=== PATIENT | male | born 1945 | race Two or more races ===

== ENCOUNTER 2025-01-30 01:59 | Inpatient (IN) | payer MEDICARE, SELFPAY ==
[2025-01-30] VITALS (14 sets, daily range): BP systolic 115–135; BP diastolic 65–87; PULSE 69–114; RESP 16–24; TEMP 36.2–36.7; O2SAT 84–100; BMI 23.2
--- NOTE | 2025-01-30 03:17 | EKG_ITS ---
[facility] Test Date: 2025-01-30 Pat Name: LUPE BAHENA Department: Room: - Gender: Male Senior [employer]: : 1945 Requested By: ED Temporary Provider Order Number: [id number] Reading MD: ED Temporary Provider Measurements Intervals [place] Rate: 90 P: 81 OR: 169 QRS: 223 QRSD: 184 T: 14 QT: 394 QTc: 483 Interpretive Statements ELECTRONIC VENTRICULAR PACEMAKER ABNORMAL RHYTHM ECG No previous ECG available for comparison /[id number]/[email or web address]/[id number].pdf
--- NOTE | 2025-01-30 03:18 | XR_ITS ---
Examination 1 AP chest single view TECHNIQUE: AP portable upright chest single view Date and time: January 30 2025 0342 hours INDICATIONS: Shortness of breath chest pain today. FINDINGS: Mild CHF Mild enlargement left ventricle. Prominent vascular congestion. Perihilar basilar edema. Cardiac leads satisfactory position Prominent osteopenia IMPRESSION: Mild CHF
--- NOTE | 2025-01-30 03:31 | EDNOTE_ITS ---
ED SOB =RME/HPI General Chief Complaint: Shortness of Breath/Dyspnea Stated Complaint: SOB Time Seen by Provider: 01/30/25 03:45 Arrival date/time: 01/30/25 01:59 RME / HPI RME / HPI Narrative: Dr. Jackson?s Main ED Evaluation: 79yo male with history ?COPD presenting with progressively worsening dyspnea x ~2 hours. Associated productive cough with clear phlegm and diaphoresis. Found to be in moderate respiratory distress by EMS and was saturating in 80s. Serial breathing treatments were given en route with overall marked improvement. Patient denies chest pain, lightheadedness, or dizziness. PMHX includes copd/chf. PSH thoraco-abdominal aortic aneurysm graft repair. Related Data Allergies Allergy/AdvReac Type Severity Reaction Status Date / Time No Known Allergies Allergy Verified 01/30/25 02:28 Review of Systems Review of Systems Systems Reviewed: All systems reviewed, normal except as documented Past Medical History Past Medical History NEUROLOGIC: Negative Neurological Disorders CARDIAC: Positive Myocardial Infarction, Aneurysm and Hypertension; Negative Congestive Heart Failure RESPIRATORY: Positive Asthma; Negative Chronic Obstructive Pulmonary Disease (COPD) GASTROINTESTINAL: Negative Gastrointestinal Disorders, Hepatitis or Colorectal Cancer GENITOURINARY: Negative Genitourinary Disorders, Renal Disease or Prostate Cancer REPRODUCTIVE: Negative Breast Cancer or Testicular Cancer MUSCULOSKELETAL: Negative Musculoskeletal Disorders or Bone Cancer ENT: Negative History of ENT Problems or Cataracts ENDOCRINE: Negative Endocrine Disorders, Diabetes Mellitus Type 1 or Diabetes Mellitus Type 2 HEMATOLOGIC: Negative Blood Disorders, Anemia, Leukemia, Hemophilia, Thalassemia, Sickle Cell Disease or Clotting Problems OTHER HISTORY: Negative Hospitalization, Autoimmune Disease, Down Syndrome, D evelopmental Delay, Shingles, Falls, Blood Transfusions, Blood Transfusion Reaction, Anesthesia Reactions, Organ Transplant, Chemotherapy, Radiation Therapy, Hyperbaric Therapy, MRSA, VRSA, Vancomycin-Resistant Enterococci, Human Immunodeficiency Virus (HIV), Chicken Pox, Measles, Mumps, Rubella ([place] Measles), Pertussis, Clostridium Difficile, Cancer, Breast Cancer, Colorectal Cancer, Lung Cancer, Prostate Cancer or Testicular Cancer Surgical History SURGICAL: Positive Cardiac Surgery, Coronary Artery Bypass Graft and Pacemaker; Negative Endocrine Surgery, Thyroidectomy, Ear Surgery, Tympanostomy Tube, Eye Surgery, Nose Surgery, Oral Surgery, Tonsillectomy, Adenoidectomy, Cochlear Implant, Corneal Transplant, Throat Surgery, Abdominal Surgery, Tracheostomy, Penile Implant, Nephrectomy, Ureteral Stent, Transurethral Resection, Neurologic Surgery, Brain Shunt, Vasectomy, Organ Transplant or ESWL Social History SMOKING STATUS: Current some day smoker ED Exam Narrative Physical exam: GENERAL APPEARANCE: alert and oriented x 4, mild conversational dyspnea, no acute distress HEENT: Normocephalic, atraumatic; pupils equal, round, reactive to light; EOMI; mucous membranes pink, moist; oropharynx clear NECK: Supple, no JVD LUNGS: Diminished breath sounds bilaterally, basilar rales bilaterally HEART: Regular rate, regular rhythm; normal S1, S2; no murmurs ABDOMEN: non distended; normal BS; soft, no tenderness, no guarding, no rebound; no masses, no organomegaly, no hernia BACK: no CVA tenderness EXTREMITIES: atraumatic; no edema NEUROLOGIC: awake; alert and oriented x4; cranial nerves II-XII grossly intact; no focal sensory or motor deficits PSYCHIATRIC: appropriate mood and affect SKIN: warm, dry, normal color; no rashes Course Course Course Narrative: CXR is ordered for determining the etiology of shortness of breath. Quality Measures none Orders Category Date Time Status Bedside COVID-19 Antigen Test NOW Care 01/30/25 03:44 Active Bedside Influenza A&B Antigen Test NOW Care 01/30/25 03:44 Completed EKG (ED ONLY) *Do not use* NOW Care 01/30/25 03:17 Completed Notify provider NOW Care 01/30/25 05:48 Active EKG (ED Only) Stat Exams 01/30/25 03:17 Draft US venous doppler LE BI Stat Exams 01/30/25 05:50 Taken XR chest 1V portable Stat Exams 01/30/25 03:18 Taken B-Type Natriuretic Peptide Stat Lab 01/30/25 04:26 Completed Blood Culture (Lab) Stat Lab 01/30/25 03:30 Received CBC Stat Lab 01/30/25 03:20 Completed Comprehensive Metabolic Panel Stat Lab 01/30/25 04:26 Completed D-Dimer Stat Lab 01/30/25 03:20 Completed Drug Screen,Urine Stat Lab 01/30/25 03:17 Ordered Magnesium Stat Lab 01/30/25 04:26 Completed Partial Thromboplastin Time AM DRAW Lab 02/01/25 05:00 Ordered Partial Thromboplastin Time Stat Lab 01/30/25 04:26 Completed Prothrombin Time with INR AM DRAW Lab 02/01/25 05:00 Ordered Prothrombin Time with INR Stat Lab 01/30/25 04:26 Completed Troponin I Stat Lab 01/30/25 04:26 Completed UA, C/S IF [Urinalysis, C/S if Indicated] Stat Lab 01/30/25 03:17 Ordered Albuterol/Ipratr Rt Sasha [Duoneb Rt Sasha] Med 01/30/25 03:46 Discontinued 3 ml INH X1 ONE Heparin Inj Med 01/30/25 06:25 Discontinued 4,000 unit IV X1 ONE MethylPREDNISolone.* [SoluMEDROL Inj] Med 01/30/25 03:46 Discontinued 125 mg IVP X1 ONE Vital Signs Vital signs: Vital Signs Temperature 97.8 F 01/30/25 02:17 Pulse Rate 101 H 01/30/25 02:17 Respiratory Rate 16 01/30/25 02:17 Blood Pressure 119/82 01/30/25 02:17 Pulse Oximetry (%) 95 01/30/25 02:17 Oxygen Delivery Method Nasal Cannula 01/30/25 02:17 Oxygen Flow Rate 2 01/30/25 02:17 Shortness of Breath / Dyspnea MDM Narrative MDM Narrative:: Scribe Attestation: 01/30/25 - Latisha Joya am scribing for and in the presence of Dr. Jackson. 79yo male with history ?COPD presenting with progressively worsening dyspnea x ~2 hours. Associated productive cough with clear phlegm and diaphoresis. Please see PE findings. Lab markers demonstrate normal WBC count, mild anemia Hgb 12.9, and thrombocytopenia with platelet count 104. Coagulation profile within normal limits. D-dimer elevated at 3820, BUN 35, Creatinine 3.3, eGFR 18. Troponin elevated at 0.206 , BNP elevated 892 . EKG without acute findings. CXR demonstrates mild cardiomegaly. Given high clinical suspicion of PE, heparin bolus administered. Will obtain bilateral lower extremity doppler ultrasound and VQ scan. Patient signed out pending diagnostic tests. Patient data External records reviewed:: [facility] previous records (Per chart review, patient has no previous ED visits or admissions to this facility.) and EMS form Clinical information provided by:: patient Social determinants that could affect healthcare access:: none Patient has the following chronic illnesses:: COPD, HTN How is presenting disease/condition affected by chronic disease/condition?: exacerbated by Evaluation data The following diagnostics were reviewed and interpreted by me:: lab results, radiology exam(s) and EKG tracing(s) Lab and/or radiology exams considered but not ordered:: none Interpretation Summary: CXR shows mild cardiomegaly, no infiltrates, no pleural effusions, according to my interpretation. EKG done at 0331, paced rhythm, rate of 90, occasional PVCs, ?LBBB, normal intervals, according to my interpretation. Medications / Prescriptions Medications or Prescriptions considered but not ordered:: none Medication administrations:: Medication Administration History Discontinued Medications Albuterol/Ipratropium (Albuterol/Ipratropium (Duoneb) Rt Sasha 3 Ml Nebu) 3 ml INH X1 ONE Stop: 01/30/25 03:47 Last Admin: 01/30/25 04:11 Dose: 3 ml Documented By: RAJANI Heparin Sodium (Porcine) (Heparin Sod Inj 5000 Unit/Ml Vial) 4,000 unit IV X1 ONE; Protocol Stop: 01/30/25 06:26 Last Admin: 01/30/25 06:37 Dose: 4,000 unit Documented By: BROOKE Co-signed By: NISHA Methylprednisolone Sodium Succinate (Methylprednisolone Sod Succ 62.5 Mg/Ml 2ml Vial) 125 mg IVP X1 ONE Stop: 01/30/25 03:47 Last Admin: 01/30/25 04:28 Dose: 125 mg Documented By: BROOKE see above Consultations Consultation(s) initiated? (list below): No Diagnosis Shortness of Breath Differential Diagnosis: acute exacerbation of chronic obstructive airways disease, congestive heart failure, community acquired pneumonia and pulmonary embolism Most likely diagnosis given after review of the tests above:: see clinical impression below Admission Indicated Admission indicated?: not indicated Admission Request Was there a request for admission?: No Disposition Plan Disposition Plan: other (specify) (Signed out to Dr. Millan at 6 AM.) Discharge Plan Problem List Clinical Impression: Elevated troponin, Acute dyspnea Patient/Caregiver Discharge Instructions Print Language: Macedonian
[2025-01-30 03:52] LABS: Basophils # (Auto) 0.0 Thou/mm3 (0.0-0.2); Basophils % (Auto) 0 % (0-2.5); Eosinophils # (Auto) 0.1 Thou/mm3 (0.0-0.5); Eosinophils % (Auto) 1 % (0-10); Hematocrit 38.5 % (41.0-53.0); Hemoglobin 12.9 g/dL (13.5-16.0); Immature Granulocytes Auto 0.03 Thou/mm3 (0.00-0.00); Lymphocytes # (Auto) 1.6 Thou/mm3 (1.0-4.8); Lymphocytes % (Auto) 18 % (10-50); Mean Corpuscular HGB Conc 33.5 g/dl (31.0-37.0); Mean Corpuscular Hemoglobin 30.9 pg (25.0-35.0); Mean Corpuscular Volume 92 fL (80-100); Monocytes # (Auto) 0.4 Thou/mm3 (0.0-0.8); Monocytes % (Auto) 4 % (0-12); Neutrophils # (Auto) 7.1 Thou/mm3 (1.8-7.7); Neutrophils % (Auto) 76 % (37-80); Nucleated Red Blood Cell # 0.00 Thou/mm3 (0.00-0.00); Nucleated Red Blood Cell % 0 /100 WBC (0); Platelet Count 104 Thou/mm3 (140-440); RDW Standard Deviation 48.4 fL (35.1-43.9); Red Blood Count 4.17 Miln/mm3 (4.50-5.90); White Blood Count 9.4 Thou/mm3 (3.8-10.6)
[2025-01-30] MEDS: ALBUTEROL/IPRATROPIUM (Duoneb) RT SOL 3 ML NEBU INH ×2 (04:11→12:46)
[2025-01-30 04:14] LABS: D-Dimer 3820 ng/mL (<600)
[2025-01-30] MEDS: MethylPREDNISolone SOD SUCC 62.5 MG/ML 2ML VIAL 125 MG IVP (04:28)
[2025-01-30 04:57] LABS: INR 1.1 (0.9-1.3); Partial Thromboplastin Time 27.9 Seconds (22.0-36.0); Prothrombin Time 12.4 Seconds (9.0-12.2)
[2025-01-30 05:08] LABS: Alanine Aminotransferase 14 U/L (10-49); Albumin, Serum 4.2 gm/dL (3.4-4.8); Albumin/Globulin Ratio 1.8 (1.2-2.2); Alkaline Phosphatase 90 U/L (46-116); Anion Gap 10 (7-16); Aspartate Amino Transferase 16 U/L (0-34); B-Type Natriuretic Peptide 892 pg/mL (0-100); BUN/Creatinine Ratio 11 Ratio (12-20); Bilirubin,Total 0.6 mg/dL (0.3-1.2); Blood Urea Nitrogen 35 mg/dL (9-23); Calcium 9.2 mg/dL (8.3-10.6); Calcium (Corrected) 9.2 mg/dL (8.5-10.1); Carbon Dioxide 27.0 mMol/L (20.0-31.0); Chloride 105 mMol/L (98-107); Creatinine (Component) 3.3 mg/dL (0.6-1.3); Estimated Creatinine Clearance 16.6 mL/min (>60); Globulin 2.4 gm/dL (2.3-3.5); Glucose 112 mg/dL (74-106); Magnesium 2.3 mg/dL (1.6-2.6); Osmolality,Calculated 292 (275-295); Potassium 4.4 mMol/L (3.4-5.1); Sodium 142 mMol/L (136-145); Total Protein 6.6 gm/dL (5.7-8.2); eGFR 18 See Note
[2025-01-30 05:10] LABS: Troponin I 0.206 ng/mL (0.0-0.045)
--- NOTE | 2025-01-30 05:17 | PC.NURSE ---
notifed of crititcal tr 0.206, BNP 892, D-dimer of 3820, BUN 35, Cr 3.3. Awaiting orders.
--- NOTE | 2025-01-30 05:50 | XR_ITS ---
Examination: Venous duplex lower extremity sonogram, bilateral. Date and time of exam: January 30, 2025, 0615 hours INDICATIONS: Onset bilateral leg pain beginning one day ago Technique: Multiple sonographic images of the deep venous system have been obtained. B-mode/2-D grayscale imaging of vascular structures and Doppler spectral analysis (waveforms) and color performed Both legs are examined. Findings: Deep venous systems do not demonstrate abnormal echogenicity. All visualized deep veins exhibit compressibility. All visualized deep veins exhibit augmentation. Impression: Negative for deep vein thrombosis
[2025-01-30] MEDS: HEPARIN SOD INJ 5000 UNIT/ML VIAL 4000 UNIT IV (06:37)
--- NOTE | 2025-01-30 07:46 | EDNOTE_ITS ---
Emergency Room Addendum <Valery Watson - Last Filed: 01/30/25 10:37> Addendum Narrative: 0600: Care assumed from Dr. Small, the previous shift emergency physician. Past medical, surgical, social and family history reviewed. Vitals and home medications reviewed. I will assume the care of the patient at this time. Please refer to the emergency department record for history and examination from initial visit.? 79-year-old male with history of renal disease (not on dialysis), pacemaker placement 5 years ago, and history of fluid in the lungs presents to the Emergency Department with increased shortness of breath today, onset around 12 AM. He denies leg swelling. No other associated symptoms reported. Differential diagnoses: Acute decompensated heart failure, pneumonia, and pleural effusion. 0749: Discussed test HPI, PMHx, lab, radiology results and/or management with re sident working with the hospitalist. Will admit for further evaluation and management. Accepts patient for admission. Diagnoses: -Acute CHF -Elevated troponin -Acute dyspnea -Chronic renal insufficiency <Sergey Millan MD - Last Filed: 01/30/25 10:47> Addendum Narrative: 0600: Care assumed from Dr. Small, the previous shift emergency physician. Past medical, surgical, social and family history reviewed. Vitals and home medications reviewed. I will assume the care of the patient at this time. Please refer to the emergency department record for history and examination from initial visit.? 79-year-old male with history of renal disease (not on dialysis), pacemaker placement 5 years ago, and history of fluid in the lungs presents to the Emergency Department with increased shortness of breath today, onset around 12 AM. He denies leg swelling. No other associated symptoms reported. Differential diagnoses: Acute decompensated heart failure, pneumonia, and pleural effusion. 0749: Discussed test HPI, PMHx, lab, radiology results and/or management with resident working with the hospitalist. Will admit for further evaluation and management. Accepts patient for admission. Diagnoses: -Acute CHF -Elevated troponin -Acute dyspnea -Chronic renal insufficiency Since patient's care has not been at this hospital there is no previous labs to compare his renal function which is abnormal today. His BNP is elevated he is got rales on physical exam and seem reasonable since he is having increasing shortness of breath admitted for acute CHF exacerbation. I do not see any clear or strong evidence for PE but because he has renal insufficiency he cannot get a CTA. Plan was to get a VQ scan and stratify his risk for that. The resident for Dr. Mota was contacted and they came down saw the patient and agreed to admit. Ped Exam <Valery Watson - Last Filed: 01/30/25 10:37> Narrative Physical exam: Physical Exam:? General:?? ? The vital signs were reviewed. ? ? The patient is non-toxic, in no apparent distress and appears healthy with a patent airway, no respiratory distress and has no apparent circulatory problems. Head & Scalp:?? ? Normocephalic, atraumatic. Face:?? ? Appears normal and is without lesions, deformity. Ears:??? Left external pinna appears normal. ? ? Right external pinna appears normal. Eyes:?? ? The sclera is anicteric.? No obvious photophobia. ? ? The Left and Right Orbit/Lid/Conjunctiva appears normal without swelling, discoloration or injection. Nose: ? ? The nose is without deformity, discharge or tenderness; Throat: ? ? Appears normal.? The mucous membranes are pink and moist without exudates, re dness or mass seen.? The tongue appears normal. Neck: The neck is supple and no apparent mass or adenopathy. Chest: The chest wall is normal in size and symmetry and has no chest wall tenderness or crepitus. ? ? Patient has rales and crackles throughout. Cardiovascular: Regular rate and rhythm; No murmurs, rubs, or gallops; Gastrointestinal: The abdomen appears normal.? No obvious hernias or mass. The abdomen is soft and benign, non-distended, with no pain, no guarding and no rebound tenderness.? Bowel sounds are present and normal sounding.? No CVA tenderness. Genitourinary: Back/Spine: Extremities/Musculoskeletal/lymphatic:? ? ? The bilateral upper and lower extremities are warm. There is no evidence of arterial? insufficiency. There is no evidence of venous insufficiency/edema. The patient spontaneously moves bilateral upper and lower extremities with no pain and no limitation of movement.? There is no apparent, injury or trauma. Skin:? The skin is warm, dry and intact.? No rashes. No petechia. No purpura. No abnormal bruising.? The color is appropriate with no cyanosis. Mental status/Psychiatric: Mental status is appropriate for age. The patient has no apparent delusions, visual hallucinations, no apparent audible hallucinations. The patient has no apparent suicidal thoughts/ideation and no apparent homicidal thoughts/ideation. Neurological:? The patient is awake, alert, interactive, cordial, cooperative and is oriented to name and situation. The patient follows commands and answers historical question with no impairment.?? There is no visual disturbance apparent.? The pupils are equal and reactive bilaterally with normal eye movements and no diplopia The bilateral upper and lower extremities have normal strength, normal range of motion and normal functioning. The gait, station and balance appears? to be baseline with no acute change <Sergey Millan MD - Last Filed: 01/30/25 10:47> Narrative Physical exam: Physical Exam:? General:?? ? The vital signs were reviewed. ?Patient is alert awake O2 sat is 9790% while he is on 4 L nasal cannula>> the patient is non-toxic, in no apparent distress and appears healthy with a patent airway, no respiratory distress and has no apparent circulatory problems. Head & Scalp:?? ? Normocephalic, atraumatic. Face:?? ? Appears normal and is without lesions, deformity. Ears:??? Left external pinna appears normal. ? ? Right external pinna appears normal. Eyes:?? ? The sclera is anicteric.? No obvious photophobia. ? ? The Left and Right Orbit/Lid/Conjunctiva appears normal without swelling, discoloration or injection. Nose: ? ? The nose is without deformity, discharge or tenderness; Throat: ? ? Appears normal.? The mucous membranes are pink and moist without exudates, redness or mass seen.? The tongue appears normal. Neck: The neck is supple and no apparent mass or adenopathy. Chest: The chest wall is normal in size and symmetry and has no chest wall tenderness or crepitus. ? ? Patient has rales and crackles throughout. Cardiovascular: Regular rate and rhythm; No murmurs, rubs, or gallops; Gastrointestinal: The abdomen appears normal.? No obvious hernias or mass. The abdomen is soft and benign, non-distended, with no pain, no guarding and no rebound tenderness.? Bowel sounds are present and normal sounding.? No CVA tenderness. Genitourinary: Back/Spine: Extremities/Musculoskeletal/lymphatic:? ? ? The bilateral upper and lower extremities are warm. There is no evidence of arterial? insufficiency. There is no evidence of venous insufficiency/edema. The patient spontaneously moves bilateral upper and lower extremities with no pain and no limitation of movement.? There is no apparent, injury or trauma. Skin:? The skin is warm, dry and intact.? No rashes. No petechia. No purpura. No abnormal bruising.? The color is appropriate with no cyanosis. Mental status/Psychiatric: Mental status is appropriate for age. The patient has no apparent delusions, visual hallucinations, no apparent audible hallucinations. The patient has no apparent suicidal thoughts/ideation and no apparent homicidal thoughts/ideation. Neurological:? The patient is awake, alert, interactive, cordial, cooperative and is oriented to name and situation. The patient follows commands and answers historical question with no impairment.?? There is no visual disturbance apparent.? The pupils are equal and reactive bilaterally with normal eye movements and no diplopia The bilateral upper and lower extremities have normal strength, normal range of motion and normal functioning. The gait, station and balance appears? to be baseline with no acute change Results <Valery Watson - Last Filed: 01/30/25 10:37> Objective Laboratory: Laboratory Last Values WBC 9.4 Thou/mm3 (3.8-10.6) 01/30/25 03:20 RBC 4.17 Miln/mm3 (4.50-5.90) L 01/30/25 03:20 Hgb 12.9 g/dL (13.5-16.0) L 01/30/25 03:20 Hct 38.5 % (41.0-53.0) L 01/30/25 03:20 MCV 92 fL (80-100) 01/30/25 03:20 MCH 30.9 pg (25.0-35.0) 01/30/25 03:20 MCHC 33.5 g/dl (31.0-37.0) 01/30/25 03:20 RDW Std Deviation 48.4 fL (35.1-43.9) H 01/30/25 03:20 Plt Count 104 Thou/mm3 (140-440) L 01/30/25 03:20 Neut % (Auto) 76 % (37-80) 01/30/25 03:20 Lymph % (Auto) 18 % (10-50) 01/30/25 03:20 [place] % (Auto) 4 % (0-12) 01/30/25 03:20 Eos % (Auto) 1 % (0-10) 01/30/25 03:20 Baso % (Auto) 0 % (0-2.5) 01/30/25 03:20 Neut # (Auto) 7.1 Thou/mm3 (1.8-7.7) 01/30/25 03:20 Lymph # (Auto) 1.6 Thou/mm3 (1.0-4.8) 01/30/25 03:20 [place] # (Auto) 0.4 Thou/mm3 (0.0-0.8) 01/30/25 03:20 Eos # (Auto) 0.1 Thou/mm3 (0.0-0.5) 01/30/25 03:20 Baso # (Auto) 0.0 Thou/mm3 (0.0-0.2) 01/30/25 03:20 Immature Gran # (Auto) 0.03 Thou/mm3 (0.00-0.00) H 01/30/25 03:20 Absolute Nucleated RBC 0.00 Thou/mm3 (0.00-0.00) 01/30/25 03:20 Immature Gran % 0 % (0-0) 01/30/25 03:20 Nucleated RBC % 0 /100 WBC (0) 01/30/25 03:20 PT 12.4 Seconds (9.0-12.2) H 01/30/25 04:26 INR 1.1 (0.9-1.3) 01/30/25 04:26 APTT 27.9 Seconds (22.0-36.0) 01/30/25 04:26 D-Dimer 3820 ng/mL (<600) H 01/30/25 03:20 Sodium 142 mMol/L (136-145) 01/30/25 04:26 Potassium 4.4 mMol/L (3.4-5.1) 01/30/25 04:26 Chloride 105 mMol/L (98-107) 01/30/25 04:26 Carbon Dioxide 27.0 mMol/L (20.0-31.0) 01/30/25 04:26 Anion Gap 10 (7-16) 01/30/25 04:26 BUN 35 mg/dL (9-23) H 01/30/25 04:26 Creatinine 3.3 mg/dL (0.6-1.3) H 01/30/25 04:26 Estim Creat Clear Calc 16.6 mL/min (>60) L 01/30/25 04:26 eGFR 18 See Note (60-) L 01/30/25 04:26 BUN/Creatinine Ratio 11 Ratio (12-20) L 01/30/25 04:26 Glucose 112 mg/dL (74-106) H 01/30/25 04:26 Calculated Osmolality 292 (275-295) 01/30/25 04:26 Calcium 9.2 mg/dL (8.3-10.6) 01/30/25 04:26 Corrected Calcium 9.2 mg/dL (8.5-10.1) 01/30/25 04:26 Magnesium 2.3 mg/dL (1.6-2.6) 01/30/25 04:26 Total Bilirubin 0.6 mg/dL (0.3-1.2) 01/30/25 04:26 AST 16 U/L (0-34) 01/30/25 04:26 ALT 14 U/L (10-49) 01/30/25 04:26 Alkaline Phosphatase 90 U/L (46-116) 01/30/25 04:26 Troponin I 0.206 ng/mL (0.0-0.045) H* 01/30/25 04:26 B-Natriuretic Peptide 892 pg/mL (0-100) H* 01/30/25 04:26 Total Protein 6.6 gm/dL (5.7-8.2) 01/30/25 04:26 Albumin 4.2 gm/dL (3.4-4.8) 01/30/25 04:26 Globulin 2.4 gm/dL (2.3-3.5) 01/30/25 04:26 Albumin/Globulin Ratio 1.8 (1.2-2.2) 01/30/25 04:26 Imaging: Procedure(s): US venous doppler [facility] Accession Number(s): [id number] cc: Ivan Go DO; Sharad Tijerina MD; NO PRIMARY/FAMILY,PHYSICIAN~ Examination: Venous duplex lower extremity sonogram, bilateral. Date and time of exam: January 30, 2025, 0615 hours INDICATIONS: Onset bilateral leg pain beginning one day ago Technique: Multiple sonographic images of the deep venous system have been obtained. B-mode/2-D grayscale imaging of vascular structures and Doppler spectral analysis (waveforms) and color performed Both legs are examined. Findings: Deep venous systems do not demonstrate abnormal echogenicity. All visualized deep veins exhibit compressibility. All visualized deep veins exhibit augmentation. Impression: Negative for deep vein thrombosis Dictated By: Sharad Tijerina MD Procedure(s): XR chest 1V portable Accession Number(s): [id number] cc: Ivan Go DO; Sharad Tijerina MD; NO PRIMARY/FAMILY,PHYSICIAN~ Examination 1 AP chest single view TECHNIQUE: AP portable upright chest single view Date and time: January 30 2025 0342 hours INDICATIONS: Shortness of breath chest pain today. FINDINGS: Mild CHF Mild enlargement left ventricle. Prominent vascular congestion. Perihilar basilar edema. Cardiac leads satisfactory position Prominent osteopenia IMPRESSION: Mild CHF Dictated By: Sharad Tijerina MD <Sergey Millan MD - Last Filed: 01/30/25 10:47> Objective Laboratory: Laboratory Last Values WBC 9.4 Thou/mm3 (3.8-10.6) 01/30/25 03:20 RBC 4.17 Miln/mm3 (4.50-5.90) L 01/30/25 03:20 Hgb 12.9 g/dL (13.5-16.0) L 01/30/25 03:20 Hct 38.5 % (41.0-53.0) L 01/30/25 03:20 MCV 92 fL (80-100) 01/30/25 03:20 MCH 30.9 pg (25.0-35.0) 01/30/25 03:20 MCHC 33.5 g/dl (31.0-37.0) 01/30/25 03:20 RDW Std Deviation 48.4 fL (35.1-43.9) H 01/30/25 03:20 Plt Count 104 Thou/mm3 (140-440) L 01/30/25 03:20 Neut % (Auto) 76 % (37-80) 01/30/25 03:20 Lymph % (Auto) 18 % (10-50) 01/30/25 03:20 [place] % (Auto) 4 % (0-12) 01/30/25 03:20 Eos % (Auto) 1 % (0-10) 01/30/25 03:20 Baso % (Auto) 0 % (0-2.5) 01/30/25 03:20 Neut # (Auto) 7.1 Thou/mm3 (1.8-7.7) 01/30/25 03:20 Lymph # (Auto) 1.6 Thou/mm3 (1.0-4.8) 01/30/25 03:20 [place] # (Auto) 0.4 Thou/mm3 (0.0-0.8) 01/30/25 03:20 Eos # (Auto) 0.1 Thou/mm3 (0.0-0.5) 01/30/25 03:20 Baso # (Auto) 0.0 Thou/mm3 (0.0-0.2) 01/30/25 03:20 Immature Gran # (Auto) 0.03 Thou/mm3 (0.00-0.00) H 01/30/25 03:20 Absolute Nucleated RBC 0.00 Thou/mm3 (0.00-0.00) 01/30/25 03:20 Immature Gran % 0 % (0-0) 01/30/25 03:20 Nucleated RBC % 0 /100 WBC (0) 01/30/25 03:20 PT 12.4 Seconds (9.0-12.2) H 01/30/25 04:26 INR 1.1 (0.9-1.3) 01/30/25 04:26 APTT 27.9 Seconds (22.0-36.0) 01/30/25 04:26 D-Dimer 3820 ng/mL (<600) H 01/30/25 03:20 Sodium 142 mMol/L (136-145) 01/30/25 04:26 Potassium 4.4 mMol/L (3.4-5.1) 01/30/25 04:26 Chloride 105 mMol/L (98-107) 01/30/25 04:26 Carbon Dioxide 27.0 mMol/L (20.0-31.0) 01/30/25 04:26 Anion Gap 10 (7-16) 01/30/25 04:26 BUN 35 mg/dL (9-23) H 01/30/25 04:26 Creatinine 3.3 mg/dL (0.6-1.3) H 01/30/25 04:26 Estim Creat Clear Calc 16.6 mL/min (>60) L 01/30/25 04:26 eGFR 18 See Note (60-) L 01/30/25 04:26 BUN/Creatinine Ratio 11 Ratio (12-20) L 01/30/25 04:26 Glucose 112 mg/dL (74-106) H 01/30/25 04:26 Calculated Osmolality 292 (275-295) 01/30/25 04:26 Calcium 9.2 mg/dL (8.3-10.6) 01/30/25 04:26 Corrected Calcium 9.2 mg/dL (8.5-10.1) 01/30/25 04:26 Magnesium 2.3 mg/dL (1.6-2.6) 01/30/25 04:26 Total Bilirubin 0.6 mg/dL (0.3-1.2) 01/30/25 04:26 AST 16 U/L (0-34) 01/30/25 04:26 ALT 14 U/L (10-49) 01/30/25 04:26 Alkaline Phosphatase 90 U/L (46-116) 01/30/25 04:26 Troponin I 0.206 ng/mL (0.0-0.045) H* 01/30/25 04:26 B-Natriuretic Peptide 892 pg/mL (0-100) H* 01/30/25 04:26 Total Protein 6.6 gm/dL (5.7-8.2) 01/30/25 04:26 Albumin 4.2 gm/dL (3.4-4.8) 01/30/25 04:26 Globulin 2.4 gm/dL (2.3-3.5) 01/30/25 04:26 Albumin/Globulin Ratio 1.8 (1.2-2.2) 01/30/25 04:26
[2025-01-30 08:22] LABS: Collection Type, Urine Clean Catch; Squamous Epithelial Cell,Urine 0 /hpf (0-5)
[2025-01-30 08:29] LABS: Bilirubin,Urine Negative (Negative); Blood,Urine 1+ (Negative); Clarity,Urine Clear (Clear/Hazy); Color,Urine Lt-Yellow (Lt Yel-Yel); Culture Indicated,Urine Not Indicated; Glucose, Urine Negative (Negative); Ketones,Urine Negative (Negative); Leukocyte Esterase,Urine Negative (Negative); Nitrite,Urine Negative (Negative); PH,Urine 6.5 (5.0-7.0); Protein,Urine 1+ (Neg - Trace); RBC,Urine 5 /hpf (0-3); Specific Gravity,Urine 1.012 (1.001-1.035); Urobilinogen,Urine Negative mg/dL (0.0-1.0); WBC,Urine 1 /hpf (0-5)
[2025-01-30 08:41] LABS: Amphetamine/Methamp Scrn,U Negative (Negative); Barbiturate Screen,Urine Negative (Negative); Benzodiazepines Screen,Urine Negative (Negative); Benzoylecgonine Screen, Ur Negative (Negative); Fentanyl Screen,Urine Negative (Negative); Opiate Screen,Urine Negative (Negative); THC Screen,Urine Negative (Negative)
--- NOTE | 2025-01-30 10:06 | XR_ITS ---
Examination: Pulmonary perfusion ventilatory scan Date and time: February 01, 2025 1248 hours INDICATIONS: Coronary artery disease, status post CABG pacemaker hypertension worsening shortness of breath with no associated chest pain, hypoxia and tachycardia yesterday TECHNIQUE AND FINDINGS: Ventilation scan 43.6 mCi technetium 99m DTPA aerosol Perfusion 4.1 mCi technetium 99m macroaggregated albumin Matching anterior posterior right and left lateral right and left oblique images Reasonably homogeneous perfusion No perfusion ventilatory mismatches There is heterogeneous ventilation IMPRESSION: Low probability pulmonary artery emboli
--- NOTE | 2025-01-30 10:09 | XR_ITS ---
Examination: Retroperitoneal ultrasound, complete Technique: Multiple high resolution grayscale images of the retroperitoneum obtained, including kidneys and bladder. Exam date and time:January 30, 2025, 1029 hours INDICATIONS: Shortness of breath beginning 2 days ago FINDINGS: Right kidney 6.9 cm renal cortex 1.3 cm Left kidney 8.0 cm renal cortex 1.1 cm Moderate renal parenchymal scar formation. No hydronephrosis. 12 mm left renal cyst No bladder mass or bladder calculi. Bladder prevoid volume 279 cc Prostate 21.1 cc no prostate nodules IMPRESSION: Small kidneys with bilateral renal cortical thinning Moderate bilateral renal parenchymal scar formation
[2025-01-30 11:00] LABS: Base Excess -2 (-3-3); HCO3 23 mEq/L (20-26); Inspired Oxygen, FIO2 21 %; O2 Saturation 92 % (91-98); PCO2 40 mmHg (32.0-48.0); PO2 62 mmHg (83-108); pH, Arterial 7.37 (7.35-7.45)
[2025-01-30 11:03] LABS: Allen Test Performed/OK; Puncture Site Right Radial
[2025-01-30 11:05] LABS: Lactate (Lactic Acid) 0.9 mMol/L (0.4-2.0)
--- NOTE | 2025-01-30 11:31 | PC.NURSE ---
Report given to Nicolasa NAVAS, patient transferring to room 370.
[2025-01-30 11:32] LABS: Procalcitonin 0.10 ng/ml (0.0-0.49)
[2025-01-30] MEDS: FUROSEMIDE INJ 10 MG/ML 4ML VIAL 40 MG IVP (13:28)
[2025-01-30] MEDS: cefTRIAXone/D5w 1gm IV premix 1 GM/50 ML BAG IV (13:29)
[2025-01-30 13:34] LABS: Troponin I 0.299 ng/mL (0.0-0.045)
[2025-01-30] MEDS: AZITHROMYCIN INJ 500 MG in SODIUM CHLORIDE 0.9% 250 ML 250 ML 250 MG IV (13:36)
[2025-01-30] MEDS: BUMETANIDE INJ 0.25 MG/ML VIAL 4 ML 1 MG IVP (15:47)
--- NOTE | 2025-01-30 16:48 | PD.RESHP ---
Documentation for date of: 01/30/25 [facility] History of Present Illness History of present illness: Michelet is a 79 y/o male with PMHx of CAD s/p CABG, pacemaker, HTN, HLD, HFrEF who comes in for an evaluation of worsening shortness of breath, not worse with exertion, [place], with no associated chest pain. Patient reports that he has had shortness of breath before, however not like this while he was [place] the [place]. He reports that he decided to call an ambulance as it continues to progressively worse. He denies having shortness of breath while laying flat at home or on exertion. He does endorse extensive heart history and says that he takes water pills at home. He denies noticing any lower extremity swelling recently. He says that he recently moved to [place], however he originally lived in [place] and had a lot of his doctors in [place]. Denies any chest pain, nausea, vomiting, diarrhea, abdominal pain at this time. He also reports that he goes to his appointments routinely. He denies any recent travel or sick contacts. He is unsure who his clerk general is. Denies ever using oxygen at home. Denies ever seeing a lung doctor. No other complaints at this time. ED Course: Patient came to the ED with a temperature of 97.8, heart rate of 101, respiratory rate 16, blood pressure 119/82, saturating 95% on 2 L nasal cannula. He was worked up was found to have a sodium of 142, potassium 4.4, chloride 105, bicarb 27, BUN/creatinine of 35 and 3.3 respectively, glucose 112, hemoglobin 13, white count 9, D-dimer 3820, BNP 892, troponin 0.2. Checks x-ray was done which showed mild heart failure, EKG was done which showed electronically paced rhythm at the time. Repeat venous duplex of lower extremities was done which was unremarkable. Patient was given Solu-Medrol 125 mg, albuterol x 1. Medicine was consulted and patient was made to the floors. 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 Limited drinking history at this time. Currently retired. No recent travel. Lives in [place] Review of Systems Review of Systems Narrative Review of Systems: 12 point ROS was reviewed and otherwise negative unless stated directly in HPI. Exam Vital Signs Temp Pulse Resp BP Pulse Ox O2 Del Method O2 Flow Rate 97.3 F 82 16 122/78 94 L Nasal Cannula 2 01/30/25 16:00 01/30/25 16:00 01/30/25 16:00 01/30/25 16:00 01/30/25 16:00 01/30/25 16:00 01/30/25 16:00 Narrative Exam General: AAOx3, NAD, pleasant male HEENT: Moist mucous membranes, conjunctiva clear, EOMI, PERRLA, Cardiovascular: S1, S2, possible EJM heard, radial pulses +2 bilat, RRR, no JVD appreciated Pulmonary: Crackles heard in lower lung martínez bilaterally, no wheezing at this time. 2 L nasal cannula GI: No tenderness to light or deep palpitation, no guarding, rigidity, rebound tenderness or distension Extremities: +1 edema in lower extremities bilaterally, dorsalis pedis pulses +2 bilaterally Neuro: AAOx3, no focal motor or sensory deficits in the UE or LE bilat Psych: Good judgement, thought and behavior Results: Labs 01/30/25 03:20 01/30/25 04:26 Labs: Short CBC 01/30/25 Range/Units 03:20 WBC 9.4 (3.8-10.6) Thou/mm3 Hgb 12.9 L (13.5-16.0) g/dL Hct 38.5 L (41.0-53.0) % Plt Count 104 L (140-440) Thou/mm3 BMP 01/30/25 04:26 Sodium 142 Potassium 4.4 Chloride 105 Carbon Dioxide 27.0 BUN 35 H Creatinine 3.3 H Glucose 112 H Calcium 9.2 Cardiac Enzymes 01/30/25 01/30/25 Range/Units 04:26 12:45 Troponin I 0.206 H* 0.299 H* (0.0-0.045) ng/mL Liver Function 01/30/25 Range/Units 04:26 Total Bilirubin 0.6 (0.3-1.2) mg/dL AST 16 (0-34) U/L ALT 14 (10-49) U/L Alkaline Phosphatase 90 (46-116) U/L Albumin 4.2 (3.4-4.8) gm/dL Urine 01/30/25 Range/Units 07:47 Urine Color Lt-Yellow (Lt Yel-Yel) Urine Clarity Clear (Clear/Hazy) Urine pH 6.5 (5.0-7.0) Ur Specific Keyes 1.012 (1.001-1.035) Urine Protein 1+ A (Neg - Trace) Urine Glucose (UA) Negative (Negative) ABG Interpretation ABG results: 01/30/25 10:52 ABG pH 7.37 ABG pCO2 40 ABG pO2 62 L ABG HCO3 23 ABG O2 Saturation 92 ABG Base Excess -2 Quality Measures Quality Measures none Advance care planning discussed with:: patient Medications Home Medications and Allergies Allergies Allergy/AdvReac Type Severity Reaction Status Date / Time No Known Allergies Allergy Verified 01/30/25 02:28 Visit Medications Acetaminophen (Acetaminophen 325 Mg Tablet) 650 mg PO Q6H PRN PRN Reason: Fever >100 or pain 1-3 Stop: 03/01/25 10:05 Hydrocodone Bitart/Acetaminophen (Hydrocodone/Apap 5/325 Tablet) 1 tab PO Q4HR PRN PRN Reason: PAIN SCALE 4-6 (Moderate Stop: 02/04/25 10:05 Albuterol/Ipratropium (Albuterol/Ipratropium (Duoneb) Rt Sasha 3 Ml Nebu) 3 ml INH Q6HRRT [facility] Stop: 03/01/25 12:59 Last Admin: 01/30/25 12:46 Dose: 3 ml Bumetanide (Bumetanide Inj 0.25 Mg/Ml Vial 4 Ml) 1 mg IVP QDAY [facility] Stop: 03/01/25 15:29 Last Admin: 01/30/25 15:47 Dose: 1 mg Heparin Sodium (Porcine) (Heparin Sod Inj 5000 Unit/Ml Vial) 5,000 unit SC Q12H [facility] Stop: 02/13/25 20:59 Azithromycin 500 mg/ Sodium (Chloride) 250 mls @ 250 mls/hr IV QDAY [facility] Stop: 02/06/25 12:21 Last Infusion: 01/30/25 15:20 Dose: Infused Ceftriaxone Sodium/Dextrose (Rocephin/D5w 1gm Iv Premix) 1 gm in 50 mls @ 100 mls/hr IV QDAY [facility] Stop: 02/06/25 12:29 Last Infusion: 01/30/25 15:19 Dose: Infused Ondansetron HCl (Ondansetron Inj 2 Mg/Ml Inj 2 Ml) 4 mg IVP Q6H PRN; Protocol PRN Reason: NAUSEA OR VOMITING Stop: 03/01/25 10:05 Discontinued Medications Albuterol/Ipratropium (Albuterol/Ipratropium (Duoneb) Rt Sasha 3 Ml Nebu) 3 ml INH X1 ONE Stop: 01/30/25 03:47 Last Admin: 01/30/25 04:11 Dose: 3 ml Furosemide (Furosemide Inj 10 Mg/Ml 4ml Vial) 40 mg IVP X1 ONE Stop: 01/30/25 12:20 Last Admin: 01/30/25 13:28 Dose: 40 mg Heparin Sodium (Porcine) (Heparin Sod Inj 5000 Unit/Ml Vial) 4,000 unit IV X1 ONE; Protocol Stop: 01/30/25 06:26 Last Admin: 01/30/25 06:37 Dose: 4,000 unit Methylprednisolone Sodium Succinate (Methylprednisolone Sod Succ 62.5 Mg/Ml 2ml Vial) 125 mg IVP X1 ONE Stop: 01/30/25 03:47 Last Admin: 01/30/25 04:28 Dose: 125 mg Assessment & Plan Plan Assessment Michelet is a 79 y/o male with PMHx of CAD s/p CABG, pacemaker, HTN, HLD, HFrEF who comes is currently admitted for acute hypoxic respiratory failure. #Acute hypoxic respiratory failure #Acute decompensated heart failure #? Pulmonary embolism Wells score: 4.5 Patient did get hypoxic and tachycardic, is complaining of right lower extremity calf pain, however venous duplex unremarkable. D-dimer elevated in the 3000's, however if this is just an acute phase reactant Patient would likely benefit from a CTA, however in the setting of acute kidney injury, will opt for V/Q perfusion scan at this time BNP 892 Plan: ? V/Q scan ? Telemetry ? IV diuresis with Bumex 1 mg daily ? Daily weights ? Keep magnesium of potassium above 2 and 4 respectively ? Fluid restriction 1500 mL ? Oxygen, wean down as tolerated ? Strict I's and O's #Pneumonia, likely gram positive, negative or atypical organism Plan: ? Ceftriaxone 1 g IV (01-30 ? Azithromycin 500 mg IV ( ? Sputum culture #Acute kidney injury on CKD DDx: Prerenal versus ATN versus obstructive History of stones, BPH: None Unsure if patient has hx of DM2 Plan: ? Nephrology consulted, appreciate recommendations ? Will do IV diuresis at this time ? Spot protein, urine lytes, urea and creatinine ? Renally dose medicines ? Avoid nephrotoxic agents #Chronic A-fib [id number]: 5 HAS-BLED: 3 Rate: Controlled Rhythm: Regular AC: Electronically paced at this time Plan: ? Telemetry ? Keep magnesium and potassium above 2 and for Spectrocin ? Resumed home Eliquis 2.5 mg twice daily #History of CAD, status post CABG #Elevated troponins Troponin 0.2 -> 0.299 Plan: ?Trend troponin every 6 hours until downtrend ? Resumed home aspirin and Lipitor #Hypertension #Hyperlipidemia Chronic Plan: ? Will resume blood pressure medicines slowly at this time considering IV diuresis ? Resumed home Lipitor 80 mg at bedtime #Health Maintenance Disposition: Telemetry DVT prophylaxis: Eliquis GI prophylaxis: Protonix Diet: Cardiac CODE STATUS: Full Patient seen and care discussed with my attending physician, Dr. Svetlana Aguirre, PGY-2 Attending Provider Attestation/Addendum I have discussed and was present for the essential components of the history, physical examination, diagnosis, and treatment plan with the resident. I agree with the patient's care as documented by the resident and amended herein by me. Barrington Mota DO. Although this document has been carefully reviewed, there may still be some phonetic and other typographical errors. These errors are purely grammatical due to imperfections in the software program and should not be construed in any way to compromise the substance of the patient's medical care during this visit.
[2025-01-30 20:07] LABS: Troponin I 0.305 ng/mL (0.0-0.045)
[2025-01-30] MEDS: ATORVASTATIN CALCIUM 20 MG TABLET 80 MG PO (21:10)
[2025-01-30] MEDS: APIXABAN 2.5 MG TABLET PO (21:10)
[2025-01-30] MEDS: SODIUM CHLORIDE RT 10% 15 ML NEBU 5 ML INH (22:39)
[2025-01-31] VITALS (14 sets, daily range): BP systolic 95–122; BP diastolic 61–70; PULSE 61–86; RESP 14–99; TEMP 36.2–36.3; O2SAT 96–99; BMI 23.7
[2025-01-31] MEDS: ALBUTEROL/IPRATROPIUM (Duoneb) RT SOL 3 ML NEBU INH ×3 (01:18→11:48)
[2025-01-31 06:34] LABS: Basophils # (Auto) 0.0 Thou/mm3 (0.0-0.2); Basophils % (Auto) 0 % (0-2.5); Eosinophils # (Auto) 0.0 Thou/mm3 (0.0-0.5); Eosinophils % (Auto) 0 % (0-10); Hematocrit 31.0 % (41.0-53.0); Hemoglobin 10.4 g/dL (13.5-16.0); Immature Granulocytes Auto 0.06 Thou/mm3 (0.00-0.00); Lymphocytes # (Auto) 0.9 Thou/mm3 (1.0-4.8); Lymphocytes % (Auto) 6 % (10-50); Mean Corpuscular HGB Conc 33.5 g/dl (31.0-37.0); Mean Corpuscular Hemoglobin 30.6 pg (25.0-35.0); Mean Corpuscular Volume 91 fL (80-100); Monocytes # (Auto) 0.4 Thou/mm3 (0.0-0.8); Monocytes % (Auto) 3 % (0-12); Neutrophils # (Auto) 12.7 Thou/mm3 (1.8-7.7); Neutrophils % (Auto) 91 % (37-80); Nucleated Red Blood Cell # 0.00 Thou/mm3 (0.00-0.00); Nucleated Red Blood Cell % 0 /100 WBC (0); Platelet Count 87 Thou/mm3 (140-440); RDW Standard Deviation 45.8 fL (35.1-43.9); Red Blood Count 3.40 Miln/mm3 (4.50-5.90); White Blood Count 14.0 Thou/mm3 (3.8-10.6)
[2025-01-31 06:41] LABS: Parathyroid Hormone Intact 191.5 pg/ml (18.5-88.0)
[2025-01-31 07:05] LABS: Alanine Aminotransferase 10 U/L (10-49); Albumin, Serum 3.7 gm/dL (3.4-4.8); Albumin/Globulin Ratio 1.7 (1.2-2.2); Alkaline Phosphatase 76 U/L (46-116); Anion Gap 12 (7-16); Aspartate Amino Transferase 13 U/L (0-34); BUN/Creatinine Ratio 13 Ratio (12-20); Bilirubin,Total 0.6 mg/dL (0.3-1.2); Blood Urea Nitrogen 41 mg/dL (9-23); Calcium 8.9 mg/dL (8.3-10.6); Calcium (Corrected) 9.1 mg/dL (8.5-10.1); Carbon Dioxide 22.7 mMol/L (20.0-31.0); Cardiac Risk Estimate 2.8 RATIO (4.0-6.7); Chloride 104 mMol/L (98-107); Cholesterol 116 mg/dL (132-200); Creatinine (Component) 3.1 mg/dL (0.6-1.3); Estimated Creatinine Clearance 17.7 mL/min (>60); Globulin 2.2 gm/dL (2.3-3.5); Glucose 127 mg/dL (74-106); HDL Cholesterol 42 mg/dL (40-60); LDL Cholesterol,Calculated 63 mg/dL (0-130); Magnesium 1.8 mg/dL (1.6-2.6); Osmolality,Calculated 289 (275-295); Phosphorous 4.0 mg/dL (2.4-5.1); Potassium 4.0 mMol/L (3.4-5.1); Sodium 139 mMol/L (136-145); Thyroid Stimulating Hormone 0.50 uIU/mL (0.55-4.78); Total Protein 5.9 gm/dL (5.7-8.2); Triglycerides 54 mg/dL (30-150); Uric Acid 6.6 mg/dL (3.7-9.2); eGFR 20 See Note
[2025-01-31 07:11] LABS: Creatinine,Random Urine 72 mg/dL (30-125); Protein Total, Random Urine 60 mg/dL (1-14); Sodium,Urine Random 35.1 mMol/L (20.0-110.0); Urea Nitrogen, Random Urine 551.0 mg/dL (350.0-1000.0)
[2025-01-31 07:16] LABS: Glucose Estimated Average 128 mg/dL (80-131); Hemoglobin A1C 6.1 % Hgb (4.8-6.0)
--- NOTE | 2025-01-31 08:44 | ESCONSULT_ITS ---
HPI Data of Consult Consult date: 01/31/25 Requesting Physician: Lucas Mota DO Admitting Provider: Lucas Mota DO Attending Provider: Lucas Mota DO Primary Care Provider: Physician No Primary/Family Consult Narrative Reason for consult: DANNIELLE on CKD History of present illness: Mr. Del Angel is a 79 yo gentleman with a hx of CAD s/p CABG, pacemaker, HTN, HLD, HFrEF (pending ECHO) who comes in for an evaluation of worsening shortness of breath, not worse with exertion, [place], with no associated chest pain. Patient reports that he has had shortness of breath before, however not like this [place] he [place]. He denies LE swelling. pt reports that he lives in [place] and has doctors. no sick contacts. no home oxygen. ROS - denies chest pain, n/v, diarrhea, abdominal pain. - endorses shortness of breath. Social Hx: Used to work in [employer] as his career, smoked about 5 cigarettes every day for over 40 years ED Course: pt afebrile, mildly tachycardic to 100s, normotensive, satting well on 2 L nc. labs significant for d dimer 3820, BNP 892, trop 0.2. CXR with mild HF, DVT US unremarkable given solumedrol, and albuterol 01/30/2025: Nephrology consulted, K wnl, BUN 31, Cr 3.3. eGFR 18 01/31/2025: Patient seen and examined at bedside. breathing comfortably on RA, on exam, trace crackles bilaterally. no LE edema. Cr 3.1 from 3.3, BUN 41 from 31, eGFR 20 from 18. cc:: cc: Lucas Mota DO Review of Systems Review of Systems Narrative Review of Systems: no fever, chills, nausea, vomiting endorses shortness of breath now resolved. Exam Vital Signs Temp Pulse Resp BP Pulse Ox O2 Del Method O2 Flow Rate 97.2 F 79 18 117/67 99 Room Air 2 01/31/25 07:27 01/31/25 07:27 01/31/25 07:27 01/31/25 07:27 01/31/25 07:27 01/31/25 07:27 01/31/25 00:00 Narrative Exam GENERAL: no acute distress, AAO x3, comfortably laying in bed HEENT: Head AT/ NC. Mucous membranes moist. PERRL. . CARDIOVASCULAR: RRR. Normal S1/S2, + murrmur . No pitting edema of bilateral LEs. RESPIRATORY: mostly CTAB with very mild trace crackles bilateral lung martínez GASTROINTESTINAL: Abdomen soft, non tender no palpable masses. Bowel sounds present MUSCULOSKELETAL:? No cyanosis or edema, no visible joint swelling. NEUROLOGICAL: CN II-XII grossly intact. No focal deficits. Sensation intact, symmetric. PSYCHIATRIC: Awake and alert, not agitated, normal mood and affect. SKIN: No obvious rashes, no jaundice, normal turgor. Results Labs 01/31/25 05:01 01/31/25 05:01 Labs: Short CBC 01/31/25 Range/Units 05:01 WBC 14.0 H D (3.8-10.6) Thou/mm3 Hgb 10.4 L D (13.5-16.0) g/dL Hct 31.0 L (41.0-53.0) % Plt Count 87 L (140-440) Thou/mm3 BMP 01/31/25 05:01 Sodium 139 Potassium 4.0 Chloride 104 Carbon Dioxide 22.7 BUN 41 H Creatinine 3.1 H Glucose 127 H Calcium 8.9 Cardiac Enzymes 01/30/25 01/30/25 Range/Units 12:45 19:28 Troponin I 0.299 H* 0.305 H* (0.0-0.045) ng/mL Liver Function 01/31/25 Range/Units 05:01 Total Bilirubin 0.6 (0.3-1.2) mg/dL AST 13 (0-34) U/L ALT 10 (10-49) U/L Alkaline Phosphatase 76 (46-116) U/L Albumin 3.7 D (3.4-4.8) gm/dL ABG Interpretation ABG results: 01/30/25 10:52 ABG pH 7.37 ABG pCO2 40 ABG pO2 62 L ABG HCO3 23 ABG O2 Saturation 92 ABG Base Excess -2 Quality Measures Quality Measures none Advance care planning discussed with:: patient Medications Home Medications and Allergies Home Medications ?Medication ?Instructions ?Recorded ?Confirmed ?Type apixaban 2.5 mg tablet (Eliquis) 2.5 mg PO BID 5 01/31/25 History bumetanide 1 mg tablet 1 mg PO QDAY 01/31/25 History carvedilol 3.125 mg tablet 3.125 mg feeding tube BID 0 01/31/25 01/31/25 History isosorbide mononitrate 30 mg 30 mg PO QAM 01/31/2504/17 History tablet,extended release 24 hr montelukast 10 mg tablet 10 mg PO .pm 01/31/25 History rosuvastatin 40 mg tablet 40 mg PO QDAY 01/31/2501/31 History sacubitril 24 mg-valsartan 26 mg 1 tab PO BID 01/31/25 01/31/25 History tablet (Entresto) Allergies Allergy/AdvReac Type Severity Reaction Status Date / Time No Known Allergies Allergy Verified 01/30/25 02:28 Visit Medications Acetaminophen (Acetaminophen 325 Mg Tablet) 650 mg PO Q6H PRN PRN Reason: Fever >100 or pain 1-3 Stop: 03/01/25 10:05 Hydrocodone Bitart/Acetaminophen (Hydrocodone/Apap 5/325 Tablet) 1 tab PO Q4HR PRN PRN Reason: PAIN SCALE 4-6 (Moderate Stop: 02/04/25 10:05 Albuterol/Ipratropium (Albuterol/Ipratropium (Duoneb) Rt Sasha 3 Ml Nebu) 3 ml INH Q6HRRT [facility] Stop: 03/01/25 12:59 Last Admin: 01/31/25 06:42 Dose: 3 ml Apixaban (Apixaban 2.5 Mg Tablet) 2.5 mg PO BID [facility] Stop: 03/01/25 20:59 Last Admin: 01/30/25 21:10 Dose: 2.5 mg Aspirin (Aspirin Ec 81 Mg Tabec) 81 mg PO QDAY [facility] Stop: 03/02/25 08:59 Atorvastatin Calcium (Atorvastatin Calcium 20 Mg Tablet) 80 mg PO HS [facility] Stop: 03/01/25 20:59 Last Admin: 01/30/25 21:10 Dose: 80 mg Bumetanide (Bumetanide Inj 0.25 Mg/Ml Vial 4 Ml) 1 mg IVP QDAY [facility] Stop: 03/01/25 15:29 Last Admin: 01/30/25 15:47 Dose: 1 mg Azithromycin 500 mg/ Sodium (Chloride) 250 mls @ 250 mls/hr IV QDAY [facility] Stop: 02/06/25 12:21 Last Infusion: 01/30/25 15:20 Dose: Infused Ceftriaxone Sodium/Dextrose (Rocephin/D5w 1gm Iv Premix) 1 gm in 50 mls @ 100 mls/hr IV QDAY [facility] Stop: 02/06/25 12:29 Last Infusion: 01/30/25 15:19 Dose: Infused Ondansetron HCl (Ondansetron Inj 2 Mg/Ml Inj 2 Ml) 4 mg IVP Q6H PRN; Protocol PRN Reason: NAUSEA OR VOMITING Stop: 03/01/25 10:05 Discontinued Medications Albuterol/Ipratropium (Albuterol/Ipratropium (Duoneb) Rt Sasha 3 Ml Nebu) 3 ml INH X1 ONE Stop: 01/30/25 03:47 Last Admin: 01/30/25 04:11 Dose: 3 ml Furosemide (Furosemide Inj 10 Mg/Ml 4ml Vial) 40 mg IVP X1 ONE Stop: 01/30/25 12:20 Last Admin: 01/30/25 13:28 Dose: 40 mg Heparin Sodium (Porcine) (Heparin Sod Inj 5000 Unit/Ml Vial) 4,000 unit IV X1 ONE; Protocol Stop: 01/30/25 06:26 Last Admin: 01/30/25 06:37 Dose: 4,000 unit Heparin Sodium (Porcine) (Heparin Sod Inj 5000 Unit/Ml Vial) 5,000 unit SC Q12H [facility] Stop: 02/13/25 20:59 Methylprednisolone Sodium Succinate (Methylprednisolone Sod Succ 62.5 Mg/Ml 2ml Vial) 125 mg IVP X1 ONE Stop: 01/30/25 03:47 Last Admin: 01/30/25 04:28 Dose: 125 mg Sodium Chloride (Sodium Chloride Rt 10% 15 Ml Nebu) 5 ml INH X1 ONE Stop: 01/30/25 17:16 Last Admin: 01/30/25 22:32 Dose: Not Given Sodium Chloride (Sodium Chloride Rt 10% 15 Ml Nebu) 5 ml INH X1 ONE Stop: 01/30/25 22:32 Last Admin: 01/30/25 22:39 Dose: 5 ml Assessment & Plan Plan Mr. Lundberg is a 79 y/o male with PMHx of CAD s/p CABG, pacemaker, HTN, HLD, HFrEF (ECHO pending) who comes is currently admitted for acute hypoxic respiratory failure. Nephro consulted for DANNIELLE on CKD. #DANNIELLE on CKD Stage IV Cr 3.1 from 3.3, BUN 41 from 35, K wnl appears grossly euvolemic, trace crackles on auscultation Urine protein creatinine ration 0.833 Cr is downtrending, Plan -daily CMP -recommend oupatient f/u with nephrology -avoid nephrotoxic agents -stict ins and outs. Acute hypoxic respiratory failure #Acute decompensated heart failure #Query Pulmonary embolism #Pneumonia, likely gram positive, negative or atypical organism #chronic a fib #History of CAD, status post CABG #Elevated troponins #HLD #HTN -Management as per primary team Plan discussed with nephrology attending Dr. Justina Aguilera MD Internal Medicine PGY-1 Attending Provider Attestation/Addendum Patient seen and examined with resident physician Dr. Aguilera. Note reviewed, agree with findings and recommendations. DANNIELLE most likely related to prerenal azotemia. Suspect underlying CKD although we do not have the old records. Recommended to follow-up with a issuer at [facility]. Thank you Barrington for allowing me to participate in the care of Mr. Tafoya
[2025-01-31] MEDS: APIXABAN 2.5 MG TABLET PO ×2 (09:50→20:42)
[2025-01-31] MEDS: AZITHROMYCIN INJ 500 MG in SODIUM CHLORIDE 0.9% 250 ML 250 ML 250 MG IV (09:50)
[2025-01-31] MEDS: BUMETANIDE INJ 0.25 MG/ML VIAL 4 ML 1 MG IVP (09:50)
[2025-01-31] MEDS: ASPIRIN EC 81 MG TABEC PO (09:50)
[2025-01-31] MEDS: Magnesium Sulfate 2 GM Ivpb 2 GM/50 ML BAG IV (09:50)
[2025-01-31] MEDS: cefTRIAXone/D5w 1gm IV premix 1 GM/50 ML BAG IV ×2 (09:50→19:03)
[2025-01-31 10:51] LABS: Troponin I 0.269 ng/mL (0.0-0.045)
--- NOTE | 2025-01-31 14:29 | ESPR_ITS ---
Documentation for date of: 01/31/25 Subjective Subjective Interval history: Patient examined at bedside today. No acute overnight events. Patient reports that shortness of breath got much better. Denies any fever or chills. Denies any chest pain at this time. He is wondering when to go home. No other complaints at this time. Exam Vital Signs Temp Pulse Resp BP Pulse Ox O2 Del Method O2 Flow Rate 97.2 F 82 18 102/65 96 Room Air 2 01/31/25 11:49 01/31/25 11:49 01/31/25 11:49 01/31/25 11:49 01/31/25 11:49 01/31/25 11:49 01/31/25 00:00 Narrative Exam General: AAOx3, NAD, pleasant male HEENT: Moist mucous membranes, conjunctiva clear, EOMI, PERRLA, Cardiovascular: S1, S2, possible EJM heard, radial pulses +2 bilat, RRR, no JVD appreciated Pulmonary: minimal crackles heard in lower lung martínez bilaterally, no wheezing at this time. GI: No tenderness to light or deep palpitation, no guarding, rigidity, rebound tenderness or distension Extremities: trace edema in lower extremities bilaterally, dorsalis pedis pulses +2 bilaterally Neuro: AAOx3, no focal motor or sensory deficits in the UE or LE bilat Psych: Good judgement, thought and behavior Objective Labs 01/31/25 05:01 01/31/25 05:01 Labs: Laboratory Results - last 24 hr 01/30/25 01/31/25 01/31/25 19:28 05:01 05:45 WBC 14.0 H D RBC 3.40 L Hgb 10.4 L D Hct 31.0 L MCV 91 MCH 30.6 MCHC 33.5 RDW Std Deviation 45.8 H Plt Count 87 L Neut % (Auto) 91 H Lymph % (Auto) 6 L [place] % (Auto) 3 Eos % (Auto) 0 Baso % (Auto) 0 Neut # (Auto) 12.7 H Lymph # (Auto) 0.9 L [place] # (Auto) 0.4 Eos # (Auto) 0.0 Baso # (Auto) 0.0 Immature Gran # (Auto) 0.06 H Absolute Nucleated RBC 0.00 Immature Gran % 0 Nucleated RBC % 0 Sodium 139 Potassium 4.0 Chloride 104 Carbon Dioxide 22.7 Anion Gap 12 BUN 41 H Creatinine 3.1 H Estim Creat Clear Calc 17.7 L eGFR 20 L BUN/Creatinine Ratio 13 [address]ucose [address] Glu mg/dL 128 Hemoglobin A1c 6.1 H Calculated Osmolality 289 Uric Acid 6.6 Calcium 8.9 Corrected Calcium 9.1 Phosphorus 4.0 Magnesium 1.8 Total Bilirubin 0.6 AST 13 ALT 10 Alkaline Phosphatase 76 Troponin I 0.305 H* Total Protein 5.9 Albumin 3.7 D Globulin 2.2 L Albumin/Globulin Ratio 1.7 Triglycerides 54 Cholesterol 116 L LDL Cholesterol, Calc 63 HDL Cholesterol 42 Cholesterol/HDL Ratio 2.8 L TSH 0.50 L PTH Intact 191.5 H Ur Random Creatinine 72 U Random Total Protein 60 H Ur Random Sodium 35.1 Ur Random Urea Nitrogn 551.0 01/31/25 09:58 WBC RBC Hgb Hct MCV MCH MCHC RDW Std Deviation Plt Count Neut % (Auto) Lymph % (Auto) [place] % (Auto) Eos % (Auto) Baso % (Auto) Neut # (Auto) Lymph # (Auto) [place] # (Auto) Eos # (Auto) Baso # (Auto) Immature Gran # (Auto) Absolute Nucleated RBC Immature Gran % Nucleated RBC % Sodium Potassium Chloride Carbon Dioxide Anion Gap BUN Creatinine Estim Creat Clear Calc eGFR BUN/Creatinine Ratio Glucose Estimated Ave Glu mg/dL Hemoglobin A1c Calculated Osmolality Uric Acid Calcium Corrected Calcium Phosphorus Magnesium Total Bilirubin AST ALT Alkaline Phosphatase Troponin I 0.269 H* Total Protein Albumin Globulin Albumin/Globulin Ratio Triglycerides Cholesterol LDL Cholesterol, Calc HDL Cholesterol Cholesterol/HDL Ratio TSH PTH Intact Ur Random Creatinine U Random Total Protein Ur Random Sodium Ur Random Urea Nitrogn ABG Interpretation ABG results: 01/30/25 10:52 ABG pH 7.37 ABG pCO2 40 ABG pO2 62 L ABG HCO3 23 ABG O2 Saturation 92 ABG Base Excess -2 Quality Measures Quality Measures none Advance care planning discussed with:: patient Assessment & Plan Assessment Current Active Medications: Generic Name Dose Route Start Last Admin Trade Name Freq PRN Reason Stop Dose Admin Acetaminophen 650 mg 01/30/25 10:06 Acetaminophen 325 Mg Tablet PO 03/01/25 10:05 Q6H PRN Fever >100 or pain 1-3 Hydrocodone Bitart/Acetaminophen 1 tab 01/30/25 10:06 Hydrocodone/Apap 5/325 Tablet PO 02/04/25 10:05 Q4HR PRN PAIN SCALE 4-6 (Moderate Albuterol/Ipratropium 3 ml 01/30/25 13:00 01/31/25 11:48 Albuterol/Ipratropium (Duoneb) Rt Sasha 3 Ml Nebu INH 03/01/25 12:59 3 ml Q6HRRT RACHELLE Administration Apixaban 2.5 mg 01/30/25 21:00 01/31/25 09:50 Apixaban 2.5 Mg Tablet PO 03/01/25 20:59 2.5 mg BID RACHELLE Administration Aspirin 81 mg 01/31/25 09:00 01/31/25 09:50 Aspirin Ec 81 Mg Tabec PO 03/02/25 08:59 81 mg QDAY RACHELLE Administration Atorvastatin Calcium 80 mg 01/30/25 21:00 01/30/25 21:10 Atorvastatin Calcium 20 Mg Tablet PO 03/01/25 20:59 80 mg HS RACHELLE Administration Bumetanide 1 mg 01/30/25 15:30 01/31/25 09:50 Bumetanide Inj 0.25 Mg/Ml Vial 4 Ml IVP 03/01/25 15:29 1 mg QDAY RACHELLE Administration Azithromycin 500 mg/ Sodium 250 mls @ 250 mls/hr 01/30/25 12:22 01/31/25 09:50 Chloride IV 02/06/25 12:21 250 mls/hr QDAY RACHELLE Administration Ceftriaxone Sodium/Dextrose 1 gm in 50 mls @ 100 mls/hr 01/30/25 12:30 01/31/25 09:50 Rocephin/D5w 1gm Iv Premix IV 02/06/25 12:29 100 mls/hr QDAY RACHELLE Administration Ondansetron HCl 4 mg 01/30/25 10:06 Ondansetron Inj 2 Mg/Ml Inj 2 Ml IVP 03/01/25 10:05 Q6H PRN NAUSEA OR VOMITING Protocol Plan Assessment Michelet is a 79 y/o male with PMHx of CAD s/p CABG, pacemaker, HTN, HLD, HFrEF who comes is currently admitted for acute hypoxic respiratory failure. #Acute hypoxic respiratory failure #Acute decompensated heart failure #? Pulmonary embolism Wells score: 4.5 Patient did get hypoxic and tachycardic, is complaining of right lower extremity calf pain, however venous duplex unremarkable. D-dimer elevated in the 3000's, however if this is just an acute phase reactant Patient would likely benefit from a CTA, however in the setting of acute kidney injury, will opt for V/Q perfusion scan at this time BNP 892 Plan: ? V/Q scan ? Telemetry ? IV diuresis with Bumex 1 mg daily ? Daily weights ? Keep magnesium of potassium above 2 and 4 respectively ? Fluid restriction 1500 mL ? Oxygen, wean down as tolerated ? Strict I's and O's ? Xopenex and Atrovent Q12HRT #Pneumonia, likely gram positive, negative or atypical organism Plan: ? Ceftriaxone 1 g IV (01-30 ? Azithromycin 500 mg IV ( ? 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 Nephrology consulted, appreciate recommendations ? Bumex 1 mg IV daily ? Renally dose medicines ? Avoid nephrotoxic agents #Chronic A-fib [id number]: 5 HAS-BLED: 3 Rate: Controlled Rhythm: Regular AC: Electronically paced at this time Plan: ? Telemetry ? Keep magnesium and potassium above 2 and for Spectrocin ? Resumed home Eliquis 2.5 mg twice daily #History of CAD, status post CABG #NSTEMI Type II, likely related to demand ischemia, resolved Plan: ? Continue home aspirin and Lipitor #Hypertension #Hyperlipidemia #Prediabetes Chronic A1c of 6.1 Plan: ? Will resume blood pressure medicines slowly at this time considering IV diuresis ? Continue home Lipitor 80 mg at bedtime #Health Maintenance Disposition: Telemetry DVT prophylaxis: Eliquis GI prophylaxis: Protonix Diet: Cardiac CODE STATUS: Full Patient seen and care discussed with my attending physician, Dr. Svetlana Aguirre, PGY-2 Attending Provider Attestation/Addendum I have discussed and was present for the essential components of the history, physical examination, diagnosis, and treatment plan with the resident. I agree with the patient's care as documented by the resident and amended herein by me. Barrington Mota DO. Although this document has been carefully reviewed, there may still be some phonetic and other typographical errors. These errors are purely grammatical due to imperfections in the software program and should not be construed in any way to compromise the substance of the patient's medical care during this visit.
--- NOTE | 2025-01-31 16:04 | PC.SS ---
Michelet Lundberg is a 79-year-old male admitted to [facility] for CHF. SS conducted bedside contact with the patient to complete initial assessment and to discuss discharge planning. Role and reason explained. Patient confirmed demographic information. Patient identifies his Jaz Vargas [phone] as his surrogate decision maker. Pt states he is able to complete all ADL?s independent. Pt does not possesses any DME. Pts [place] in [place] at [place] unsure of name . Pharmacy of choice is [facility]. Discharge options discussed and the pt wishes to return home.? Pt will provide transport. No further intervention required at this time, social media content manager would be available to address any further concerns. DC Plan: Home Contact: Jaz Address: Confirmed on face sheet PCP: Unsure
--- NOTE | 2025-01-31 16:08 | PC.SS ---
Rounding: Pending ECHO
[2025-01-31] MEDS: IPRATROPIUM RT 0.5 MG/ 2.5 ML NEBU INH (19:50)
[2025-01-31] MEDS: LEVALBUTEROL RT 1.25 MG/0.5 ML NEBU INH (19:50)
[2025-01-31] MEDS: ATORVASTATIN CALCIUM 20 MG TABLET 80 MG PO (20:42)
[2025-02-01] VITALS (10 sets, daily range): BP systolic 102–113; BP diastolic 61–67; PULSE 62–98; RESP 18–99; TEMP 36.1–36.6; O2SAT 91–99; BMI 23.7
[2025-02-01] MEDS: LEVALBUTEROL RT 1.25 MG/0.5 ML NEBU INH ×2 (06:11→19:08)
[2025-02-01] MEDS: IPRATROPIUM RT 0.5 MG/ 2.5 ML NEBU INH ×2 (06:11→19:08)
[2025-02-01 06:50] LABS: Basophils # (Auto) 0.0 Thou/mm3 (0.0-0.2); Basophils % (Auto) 0 % (0-2.5); Eosinophils # (Auto) 0.0 Thou/mm3 (0.0-0.5); Eosinophils % (Auto) 0 % (0-10); Hematocrit 30.4 % (41.0-53.0); Hemoglobin 10.1 g/dL (13.5-16.0); Immature Granulocytes Auto 0.03 Thou/mm3 (0.00-0.00); Lymphocytes # (Auto) 1.9 Thou/mm3 (1.0-4.8); Lymphocytes % (Auto) 18 % (10-50); Mean Corpuscular HGB Conc 33.2 g/dl (31.0-37.0); Mean Corpuscular Hemoglobin 30.4 pg (25.0-35.0); Mean Corpuscular Volume 92 fL (80-100); Monocytes # (Auto) 0.7 Thou/mm3 (0.0-0.8); Monocytes % (Auto) 7 % (0-12); Neutrophils # (Auto) 8.0 Thou/mm3 (1.8-7.7); Neutrophils % (Auto) 74 % (37-80); Nucleated Red Blood Cell # 0.00 Thou/mm3 (0.00-0.00); Nucleated Red Blood Cell % 0 /100 WBC (0); Platelet Count 87 Thou/mm3 (140-440); RDW Standard Deviation 47.7 fL (35.1-43.9); Red Blood Count 3.32 Miln/mm3 (4.50-5.90); White Blood Count 10.7 Thou/mm3 (3.8-10.6)
[2025-02-01 06:54] LABS: INR 1.1 (0.9-1.3); Partial Thromboplastin Time 29.2 Seconds (22.0-36.0); Prothrombin Time 12.4 Seconds (9.0-12.2)
[2025-02-01 06:59] LABS: Alanine Aminotransferase 15 U/L (10-49); Albumin, Serum 3.6 gm/dL (3.4-4.8); Albumin/Globulin Ratio 1.7 (1.2-2.2); Alkaline Phosphatase 68 U/L (46-116); Anion Gap 11 (7-16); Aspartate Amino Transferase 17 U/L (0-34); BUN/Creatinine Ratio 14 Ratio (12-20); Bilirubin,Total 0.4 mg/dL (0.3-1.2); Blood Urea Nitrogen 44 mg/dL (9-23); Calcium 8.6 mg/dL (8.3-10.6); Calcium (Corrected) 8.9 mg/dL (8.5-10.1); Carbon Dioxide 23.8 mMol/L (20.0-31.0); Chloride 105 mMol/L (98-107); Creatinine (Component) 3.2 mg/dL (0.6-1.3); Estimated Creatinine Clearance 17.2 mL/min (>60); Globulin 2.1 gm/dL (2.3-3.5); Glucose 100 mg/dL (74-106); Magnesium 2.3 mg/dL (1.6-2.6); Osmolality,Calculated 290 (275-295); Phosphorous 3.7 mg/dL (2.4-5.1); Potassium 3.9 mMol/L (3.4-5.1); Sodium 140 mMol/L (136-145); Total Protein 5.7 gm/dL (5.7-8.2); eGFR 19 See Note
--- NOTE | 2025-02-01 08:15 | XR_ITS ---
Examination: AP chest single view TECHNIQUE: Sitting AP portable chest single view Date and time: February 01, 2025 0901 hours Comparison January 30, 2025 INDICATIONS: Difficulty breathing chest pain this week. FINDINGS: Normal heart size Cardiac leads satisfactory position No lobar pneumonia or pulmonary edema Prominent osteopenia IMPRESSION: No lobar pneumonia or pulmonary edema
[2025-02-01] MEDS: BUMETANIDE INJ 0.25 MG/ML VIAL 4 ML 1 MG IVP (08:28)
[2025-02-01] MEDS: APIXABAN 2.5 MG TABLET PO ×2 (08:28→20:46)
[2025-02-01] MEDS: ASPIRIN EC 81 MG TABEC PO (08:28)
[2025-02-01] MEDS: cefTRIAXone/D5w 2gm 2 GM/50 ML BAG IV (08:29)
[2025-02-01] MEDS: AZITHROMYCIN INJ 500 MG in SODIUM CHLORIDE 0.9% 250 ML 250 ML 250 MG IV (08:29)
--- NOTE | 2025-02-01 08:29 | PD.RESPRO ---
Documentation for date of: 02/01/25 Subjective Subjective Interval history: Mr. Del Angel is a 79 yo gentleman with a hx of CAD s/p CABG, pacemaker, HTN, HLD, HFrEF (pending ECHO) who comes in for an evaluation of worsening shortness of breath, not worse with exertion, [place], with no associated chest pain. Patient reports that he has had shortness of breath before, however not like this [place]. He denies LE swelling. 01/30/2025: Nephrology consulted, K wnl, BUN 31, Cr 3.3. eGFR 18 01/31/2025: Patient seen and examined at bedside. breathing comfortably on RA, on exam, trace crackles bilaterally. no LE edema. Cr 3.1 from 3.3, BUN 41 from 31, eGFR 20 from 18. 02/01/2025: Patient seen and examined at bedside. Breathing comfortably on RA, intermittent dry cough. On exam, lungs CTAP, no BLE edema, Cr stable at 3.2 from 3.1, BUN 44 from 41. pending V/q scan and echo, per primary team. rec outpt f/u with [facility]. Exam Vital Signs Temp Pulse Resp BP Pulse Ox O2 Del Method O2 Flow Rate 97.6 F 72 18 109/62 98 Room Air 2 02/01/25 04:00 02/01/25 06:12 02/01/25 06:12 02/01/25 04:00 02/01/25 06:12 02/01/25 04:00 01/31/25 00:00 Narrative Exam GENERAL: no acute distress, AAO x3, comfortably laying in bed, able to sit up HEENT: Head AT/ NC. Mucous membranes moist. CARDIOVASCULAR: RRR. Normal S1/S2, + murrmur and R second intercostal space . No pitting edema of bilateral LEs. RESPIRATORY: CTAB, intermittent dry cough. GASTROINTESTINAL: Abdomen soft, non tender no palpable masses. MUSCULOSKELETAL:? No cyanosis or edema, no visible joint swelling. NEUROLOGICAL: CN II-XII grossly intact. No focal deficits. Sensation intact, symmetric. PSYCHIATRIC: Awake and alert, not agitated, normal mood and affect. SKIN: No obvious rashes, no jaundice, normal turgor. Objective Labs 02/01/25 05:19 02/01/25 05:19 Labs: Laboratory Results - last 24 hr 01/31/25 02/01/25 09:58 05:19 WBC 10.7 H RBC 3.32 L Hgb 10.1 L Hct 30.4 L MCV 92 MCH 30.4 MCHC 33.2 RDW Std Deviation 47.7 H Plt Count 87 L Neut % (Auto) 74 Lymph % (Auto) 18 [place] % (Auto) 7 Eos % (Auto) 0 Baso % (Auto) 0 Neut # (Auto) 8.0 H Lymph # (Auto) 1.9 [place] # (Auto) 0.7 Eos # (Auto) 0.0 Baso # (Auto) 0.0 Immature Gran # (Auto) 0.03 H Absolute Nucleated RBC 0.00 Immature Gran % 0 Nucleated RBC % 0 PT 12.4 H INR 1.1 APTT 29.2 Sodium 140 Potassium 3.9 Chloride 105 Carbon Dioxide 23.8 Anion Gap 11 BUN 44 H Creatinine 3.2 H Estim Creat Clear Calc 17.2 L eGFR 19 L BUN/Creatinine Ratio 14 Glucose 100 Calculated Osmolality 290 Calcium 8.6 Corrected Calcium 8.9 Phosphorus 3.7 Magnesium 2.3 Total Bilirubin 0.4 AST 17 ALT 15 Alkaline Phosphatase 68 Troponin I 0.269 H* Total Protein 5.7 Albumin 3.6 Globulin 2.1 L Albumin/Globulin Ratio 1.7 ABG Interpretation ABG results: 01/30/25 10:52 ABG pH 7.37 ABG pCO2 40 ABG pO2 62 L ABG HCO3 23 ABG O2 Saturation 92 ABG Base Excess -2 Quality Measures Quality Measures none Advance care planning discussed with:: patient Assessment & Plan Assessment Current Active Medications: Generic Name Dose Route Start Last Admin Trade Name Freq PRN Reason Stop Dose Admin Acetaminophen 650 mg 01/30/25 10:06 Acetaminophen 325 Mg Tablet PO 03/01/25 10:05 Q6H PRN Fever >100 or pain 1-3 Hydrocodone Bitart/Acetaminophen 1 tab 01/30/25 10:06 Hydrocodone/Apap 5/325 Tablet PO 02/04/25 10:05 Q4HR PRN PAIN SCALE 4-6 (Moderate Apixaban 2.5 mg 01/30/25 21:00 01/31/25 20:42 Apixaban 2.5 Mg Tablet PO 03/01/25 20:59 2.5 mg BID RACHELLE Administration Aspirin 81 mg 08/10/25 09:00 01/31/25 09:50 Aspirin Ec 81 Mg Tabec PO 03/02/25 08:59 81 mg QDAY RACHELLE Administration Atorvastatin Calcium 80 mg 01/30/25 21:00 01/31/25 20:42 Atorvastatin Calcium 20 Mg Tablet PO 03/01/25 20:59 80 mg HS RACHELLE Administration Bumetanide 1 mg 01/30/25 15:30 01/31/25 09:50 Bumetanide Inj 0.25 Mg/Ml Vial 4 Ml IVP 03/01/25 15:29 1 mg QDAY RACHELLE Administration Azithromycin 500 mg/ Sodium 250 mls @ 250 mls/hr 01/30/25 12:22 01/31/25 10:50 Chloride IV 02/06/25 12:21 Infused QDAY RACHELLE Infusion Ceftriaxone Sodium/Dextrose 2 gm in 50 mls @ 100 mls/hr 02/01/25 09:00 Rocephin/D5w 2gm IV 02/08/25 08:59 QDAY RACHELLE Ipratropium [place] 0.5 mg 01/31/25 19:00 02/01/25 06:11 Ipratropium Rt 0.5 Mg/ 2.5 Ml Nebu INH 03/02/25 18:59 0.5 mg BIDRT RACHELLE Administration Levalbuterol HCl 1.25 mg 01/31/25 19:00 02/01/25 06:11 Levalbuterol Rt 1.25 Mg/0.5 Ml Nebu INH 03/02/25 18:59 1.25 mg BIDRT RACHELLE Administration Ondansetron HCl 4 mg 01/30/25 10:06 Ondansetron Inj 2 Mg/Ml Inj 2 Ml IVP 03/01/25 10:05 Q6H PRN NAUSEA OR VOMITING Protocol Sodium Chloride 3 ml 01/31/25 14:34 Sodium Chloride Rt Sasha 0.9% 3 Ml Nebu INH 03/02/25 14:33 PRN PRN SOLN Plan Mr. Lundberg is a 79 y/o male with PMHx of CAD s/p CABG, pacemaker, HTN, HLD, HFrEF (ECHO pending) who comes is currently admitted for acute hypoxic respiratory failure. Nephro consulted for DANNIELLE on CKD. pending v/q scan to r/o PE, and echo pending. #DANNIELLE on CKD Stage IV Cr 3.2 from 3.1, BUN 44 from 41, K wnl appears euvolemic, no LE edema, and lungs clear to auscultation Urine protein creatinine ratio<3.5gm Plan -daily CMP -recommend oupatient f/u with [facility] outpatient -rec hold diuretics for #chf exacerbation -avoid nephrotoxic agents -stict ins and outs. -ok to d/c from nephro perspective. #Acute hypoxic respiratory failure- resolved #Acute decompensated heart failure- resolved -echo pending #Query Pulmonary embolism - pending v/q scan #Pneumonia, likely gram positive, negative or atypical organism - on azithro and ctx #chronic a fib #History of CAD, status post CABG #Elevated troponins #HLD #HTN -Management as per primary team Plan discussed with nephrology attending Dr. Yanet Aguilera MD Internal Medicine PGY-1 Attending Provider Attestation/Addendum Patient seen and examined with resident physician Dr. Aguilera. Note reviewed, agree with findings and recommendations. DANNIELLE most likely related to prerenal azotemia. Suspect underlying CKD although we do not have the old records. Not sure what his baseline creatinine is. Renal ultrasound showed a significantly small right kidney. A renal scan ordered to check for the function and flow of the right kidney. Unfortunately too small to salvage the right kidney. Echocardiogram pending. Diuretic was held.
[2025-02-01 12:56] LABS: Vitamin D 25 Hydroxy Total 25.2 ng/mL (7.3-40.2)
--- NOTE | 2025-02-01 12:57 | PC.NURSE ---
PATIENT TRANSFER TO NUCLEAR MEDICINE VIA WHEELCHAIR ACCOMPANIED BY HELEN BOYD. PT ALERT AND ORIENTED X4.
--- NOTE | 2025-02-01 14:57 | PD.RESPRO ---
Documentation for date of: 02/01/25 Subjective Subjective Interval history: Pt examined at bedside today. No acute overnight events. Pt reports he is doing well in addition to his SOB. He denies any fever, chills, or chest pain at this time. He is wondering when he is going go home. No other complaints at this time Exam Vital Signs Temp Pulse Resp BP Pulse Ox O2 Del Method O2 Flow Rate 97.9 F 98 18 102/65 91 L Room Air 2 02/01/25 12:00 02/01/25 12:00 02/01/25 12:00 02/01/25 12:00 02/01/25 12:00 02/01/25 12:00 01/31/25 00:00 Narrative Exam General: AAOx3, NAD, pleasant male HEENT: Moist mucous membranes, conjunctiva clear, EOMI, PERRLA, Cardiovascular: S1, S2, possible EJM heard, radial pulses +2 bilat, RRR, no JVD appreciated Pulmonary: CTAB, no wheezing at this time. GI: No tenderness to light or deep palpitation, no guarding, rigidity, rebound tenderness or distension Extremities: trace edema in lower extremities bilaterally, dorsalis pedis pulses +2 bilaterally Neuro: AAOx3, no focal motor or sensory deficits in the UE or LE bilat Psych: Good judgement, thought and behavior Objective Labs 02/01/25 05:19 02/01/25 05:19 Labs: Laboratory Results - last 24 hr 01/31/25 02/01/25 05:01 05:19 WBC 10.7 H RBC 3.32 L Hgb 10.1 L Hct 30.4 L MCV 92 MCH 30.4 MCHC 33.2 RDW Std Deviation 47.7 H Plt Count 87 L Neut % (Auto) 74 Lymph % (Auto) 18 [place] % (Auto) 7 Eos % (Auto) 0 Baso % (Auto) 0 Neut # (Auto) 8.0 H Lymph # (Auto) 1.9 [place] # (Auto) 0.7 Eos # (Auto) 0.0 Baso # (Auto) 0.0 Immature Gran # (Auto) 0.03 H Absolute Nucleated RBC 0.00 Immature Gran % 0 Nucleated RBC % 0 PT 12.4 H INR 1.1 APTT 29.2 Sodium 140 Potassium 3.9 Chloride 105 Carbon Dioxide 23.8 Anion Gap 11 BUN 44 H Creatinine 3.2 H Estim Creat Clear Calc 17.2 L eGFR 19 L BUN/Creatinine Ratio 14 Glucose 100 Calculated Osmolality 290 Calcium 8.6 Corrected Calcium 8.9 Phosphorus 3.7 Magnesium 2.3 Total Bilirubin 0.4 AST 17 ALT 15 Alkaline Phosphatase 68 Total Protein 5.7 Albumin 3.6 Globulin 2.1 L Albumin/Globulin Ratio 1.7 25-OH Vitamin D Total 25.2 ABG Interpretation ABG results: 01/30/25 10:52 ABG pH 7.37 ABG pCO2 40 ABG pO2 62 L ABG HCO3 23 ABG O2 Saturation 92 ABG Base Excess -2 Quality Measures Quality Measures none Advance care planning discussed with:: patient Assessment & Plan Assessment Current Active Medications: Generic Name Dose Route Start Last Admin Trade Name Freq PRN Reason Stop Dose Admin Acetaminophen 650 mg 01/30/25 10:06 Acetaminophen 325 Mg Tablet PO 03/01/25 10:05 Q6H PRN Fever >100 or pain 1-3 Hydrocodone Bitart/Acetaminophen 1 tab 01/30/25 10:06 Hydrocodone/Apap 5/325 Tablet PO 02/04/25 10:05 Q4HR PRN PAIN SCALE 4-6 (Moderate Apixaban 2.5 mg 01/30/25 21:00 02/01/25 08:28 Apixaban 2.5 Mg Tablet PO 03/01/25 20:59 2.5 mg BID RACHELLE Administration Aspirin 81 mg 01/31/25 09:00 02/01/25 08:28 Aspirin Ec 81 Mg Tabec PO 03/02/25 08:59 81 mg QDAY RACHELLE Administration Atorvastatin Calcium 80 mg 01/30/25 21:00 01/31/25 20:42 Atorvastatin Calcium 20 Mg Tablet PO 03/01/25 20:59 80 mg HS RACHELLE Administration Bumetanide 1 mg 01/30/25 15:30 02/01/25 08:28 Bumetanide Inj 0.25 Mg/Ml Vial 4 Ml IVP 03/01/25 15:29 1 mg QDAY RACHELLE Administration Azithromycin 500 mg/ Sodium 250 mls @ 250 mls/hr 01/30/25 12:22 02/01/25 08:29 Chloride IV 02/06/25 12:21 250 mls/hr QDAY RACHELLE Administration Ceftriaxone Sodium/Dextrose 2 gm in 50 mls @ 100 mls/hr 02/01/25 09:00 08/11/25 08:29 Rocephin/D5w 2gm IV 02/08/25 08:59 100 mls/hr QDAY RACHELLE Administration Ipratropium [place] 0.5 mg 01/31/25 19:00 02/01/25 06:11 Ipratropium Rt 0.5 Mg/ 2.5 Ml Nebu INH 03/02/25 18:59 0.5 mg BIDRT RACHELLE Administration Levalbuterol HCl 1.25 mg 01/31/25 19:00 02/01/25 06:11 Levalbuterol Rt 1.25 Mg/0.5 Ml Nebu INH 03/02/25 18:59 1.25 mg BIDRT RACHELLE Administration Ondansetron HCl 4 mg 01/30/25 10:06 Ondansetron Inj 2 Mg/Ml Inj 2 Ml IVP 03/01/25 10:05 Q6H PRN NAUSEA OR VOMITING Protocol Sodium Chloride 3 ml 01/31/25 14:34 Sodium Chloride Rt Sasha 0.9% 3 Ml Nebu INH 03/02/25 14:33 PRN PRN SOLN Plan Assessment Michelet is a 79 y/o male with PMHx of CAD s/p CABG, pacemaker, HTN, HLD, HFrEF who comes is currently admitted for acute hypoxic respiratory failure. #Acute hypoxic respiratory failure, improving #Acute decompensated heart failure #? Pulmonary embolism Wells score: 4.5 Patient did get hypoxic and tachycardic, is complaining of right lower extremity calf pain, however venous duplex unremarkable. D-dimer elevated in the 3000's, however if this is just an acute phase reactant Patient would likely benefit from a CTA, however in the setting of acute kidney injury, will opt for V/Q perfusion scan at this time BNP 892 Plan: ? V/Q scan ? Echo ? Telemetry ? Holding IV Bumex at this time ? Daily weights ? Keep magnesium of potassium above 2 and 4 respectively ? Fluid restriction 1500 mL ? Oxygen, wean down as tolerated ? Strict I's and O's ? Xopenex and Atrovent Q12HRT #Pneumonia, likely gram positive, negative or atypical organism #GPC Bacteremia, 1/2 bottles Initial Sputum shows GPC Bacteremia likely contaminant, however will treat with 2 g at this time Plan: ? Ceftriaxone 2 g IV (01-30 ? Azithromycin 500 mg IV ( ? Follow-up sputum and blood culture #Acute kidney injury on CKD DDx: Prerenal versus ATN versus obstructive History of stones, BPH: None FEUrea: 58% -> Intrinsic renal disease Urine Protein slightly elevated at 60s Cr 3.1 -> 3.12 Plan: ? Nephrology consulted, appreciate recommendations ? Hold Bumex 1 mg IV daily ? Renally dose medicines ? Avoid nephrotoxic agents #Chronic A-fib [id number]: 5 HAS-BLED: 3 Rate: Controlled Rhythm: Regular AC: Electronically paced at this time Plan: ? Telemetry ? Keep magnesium and potassium above 2 and 4 respectively ? Continue home Eliquis 2.5 mg twice daily #History of CAD, status post CABG #NSTEMI Type II, likely related to demand ischemia, resolved Plan: ? Continue home aspirin and Lipitor #Hypertension #Hyperlipidemia #Prediabetes Chronic A1c of 6.1 Plan: ? Will resume blood pressure medicines slowly at this time considering IV diuresis ? Continue home Lipitor 80 mg at bedtime #Health Maintenance Disposition: Telemetry DVT prophylaxis: Eliquis GI prophylaxis: Protonix Diet: Cardiac CODE STATUS: Full Patient seen and care discussed with my attending physician, Dr. Svetlana Aguirre, PGY-2 Attending Provider Attestation/Addendum I have discussed and was present for the essential components of the history, physical examination, diagnosis, and treatment plan with the resident. I agree with the patient's care as documented by the resident and amended herein by me. Barrington Mota DO. Although this document has been carefully reviewed, there may still be some phonetic and other typographical errors. These errors are purely grammatical due to imperfections in the software program and should not be construed in any way to compromise the substance of the patient's medical care during this visit. Patient seen and evaluated this AM. No acute events overnight, vital signs stable, patient afebrile, significant labs include a hemoglobin of 10 which is been stable BUN 44, creatinine 3.2. Echo and VQ scan are pending today, patient will need to follow-up with nephrology on an outpatient basis, will continue to hold Bumex today due to slight uptrend in creatinine to 3.2, likely secondary to diuretic use. Nephrology signed off, cleared for discharge on their standpoint however we will wait for echo and VQ scan prior to making determination.
--- NOTE | 2025-02-01 16:27 | PC.SS ---
rounding note: pending echo read back, d/c tomorrow
[2025-02-01] MEDS: ATORVASTATIN CALCIUM 20 MG TABLET 80 MG PO (20:46)
--- NOTE | 2025-02-01 21:50 | PC.NURSE ---
Pt ambulated in halls no s/s of distress or c/o sob.
[2025-02-02] VITALS: BP 127/78; PULSE 86; RESP 17; TEMP 36.4; O2SAT 95
[2025-02-02 04:00] VITALS: BP 118/76; PULSE 66; RESP 18; TEMP 36.1; O2SAT 98
[2025-02-02 06:00] VITALS: BMI 23.7
[2025-02-02] MEDS: LEVALBUTEROL RT 1.25 MG/0.5 ML NEBU INH (06:26)
[2025-02-02] MEDS: IPRATROPIUM RT 0.5 MG/ 2.5 ML NEBU INH (06:26)
[2025-02-02 06:28] VITALS: PULSE 75; PULSE 83; RESP 18; RESP 96; O2SAT 98
[2025-02-02 06:43] LABS: Alanine Aminotransferase 21 U/L (10-49); Albumin, Serum 3.6 gm/dL (3.4-4.8); Albumin/Globulin Ratio 1.7 (1.2-2.2); Alkaline Phosphatase 70 U/L (46-116); Anion Gap 11 (7-16); Aspartate Amino Transferase 18 U/L (0-34); BUN/Creatinine Ratio 14 Ratio (12-20); Basophils # (Auto) 0.0 Thou/mm3 (0.0-0.2); Basophils % (Auto) 0 % (0-2.5); Bilirubin,Total 0.5 mg/dL (0.3-1.2); Blood Urea Nitrogen 41 mg/dL (9-23); Calcium 8.4 mg/dL (8.3-10.6); Calcium (Corrected) 8.7 mg/dL (8.5-10.1); Carbon Dioxide 23.6 mMol/L (20.0-31.0); Chloride 106 mMol/L (98-107); Creatinine (Component) 3.0 mg/dL (0.6-1.3); Eosinophils # (Auto) 0.2 Thou/mm3 (0.0-0.5); Eosinophils % (Auto) 3 % (0-10); Estimated Creatinine Clearance 18.3 mL/min (>60); Globulin 2.1 gm/dL (2.3-3.5); Glucose 90 mg/dL (74-106); Hematocrit 33.3 % (41.0-53.0); Hemoglobin 10.7 g/dL (13.5-16.0); Immature Granulocytes Auto 0.02 Thou/mm3 (0.00-0.00); Lymphocytes # (Auto) 2.1 Thou/mm3 (1.0-4.8); Lymphocytes % (Auto) 26 % (10-50); Magnesium 2.5 mg/dL (1.6-2.6); Mean Corpuscular HGB Conc 32.1 g/dl (31.0-37.0); Mean Corpuscular Hemoglobin 30.3 pg (25.0-35.0); Mean Corpuscular Volume 94 fL (80-100); Monocytes # (Auto) 0.7 Thou/mm3 (0.0-0.8); Monocytes % (Auto) 8 % (0-12); Neutrophils # (Auto) 5.0 Thou/mm3 (1.8-7.7); Neutrophils % (Auto) 63 % (37-80); Nucleated Red Blood Cell # 0.00 Thou/mm3 (0.00-0.00); Nucleated Red Blood Cell % 0 /100 WBC (0); Osmolality,Calculated 291 (275-295); Phosphorous 3.2 mg/dL (2.4-5.1); Platelet Count 83 Thou/mm3 (140-440); Potassium 4.0 mMol/L (3.4-5.1); RDW Standard Deviation 48.7 fL (35.1-43.9); Red Blood Count 3.53 Miln/mm3 (4.50-5.90); Sodium 141 mMol/L (136-145); Total Protein 5.7 gm/dL (5.7-8.2); White Blood Count 8.1 Thou/mm3 (3.8-10.6); eGFR 21 See Note
[2025-02-02 08:00] VITALS: BP 129/72; PULSE 69; PULSE 85; RESP 18; TEMP 36.2; O2SAT 99
[2025-02-02] MEDS: ASPIRIN EC 81 MG TABEC PO (08:59)
[2025-02-02] MEDS: APIXABAN 2.5 MG TABLET PO (08:59)
[2025-02-02] MEDS: cefTRIAXone/D5w 2gm 2 GM/50 ML BAG IV (08:59)
--- NOTE | 2025-02-02 09:11 | PD.RESPRO ---
Documentation for date of: 02/02/25 Subjective Subjective Interval history: Mr. Del Angel is a 79 yo gentleman with a hx of CAD s/p CABG, pacemaker, HTN, HLD, HFrEF (pending ECHO) who comes in for an evaluation of worsening shortness of breath, not worse with exertion, [place], with no associated chest pain. Patient reports that he has had shortness of breath before, however not like this [place]. He denies LE swelling. 01/30/2025: Nephrology consulted, K wnl, BUN 31, Cr 3.3. eGFR 18 01/31/2025: Patient seen and examined at bedside. breathing comfortably on RA, on exam, trace crackles bilaterally. no LE edema. Cr 3.1 from 3.3, BUN 41 from 31, eGFR 20 from 18. 02/01/2025: Patient seen and examined at bedside. Breathing comfortably on RA, intermittent dry cough. On exam, lungs CTAP, no BLE edema, Cr stable at 3.2 from 3.1, BUN 44 from 41. pending V/q scan and echo, per primary team. rec outpt f/u with [facility]. 02/02/2025: patient seen and examined at bedside. he reports that he would like to go home today because he needs help from his neighbor to pick him up. He has R shoulder pain (rec apap vs lidocaine patch). Pt breathing comfortably on RA with dry intermittent cough VQ scan done yesterday negative for PE. On exam Lungs CTAP, no BLE, Cr 3.0 from 3.2 , BUN 41 from 44. 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 Exam Vital Signs Temp Pulse Resp BP Pulse Ox O2 Del Method O2 Flow Rate 97.1 F 69 18 129/72 99 Room Air 2 02/02/25 08:00 02/02/25 08:00 02/02/25 08:00 02/02/25 08:00 02/02/25 08:00 02/02/25 08:00 01/31/25 00:00 Narrative Exam GENERAL: no acute distress, AAO x3, comfortably laying in bed, able to sit up HEENT: Head AT/ NC. Mucous membranes moist. CARDIOVASCULAR: RRR. Normal S1/S2, + murrmur and R second intercostal space . No pitting edema of bilateral LEs. RESPIRATORY: CTAB, intermittent dry cough. GASTROINTESTINAL: Abdomen soft, non tender no palpable masses. MUSCULOSKELETAL:? No cyanosis or edema, no visible joint swelling. c/o R shoulder pain. ROM in tact. NEUROLOGICAL: CN II-XII grossly intact. No focal deficits. Sensation intact, symmetric. PSYCHIATRIC: Awake and alert, not agitated, normal mood and affect. SKIN: No obvious rashes, no jaundice, normal turgor. Objective Labs 02/02/25 05:43 02/02/25 05:43 Labs: Laboratory Results - last 24 hr 01/31/25 02/02/25 05:01 05:43 WBC 8.1 RBC 3.53 L Hgb 10.7 L Hct 33.3 L MCV 94 MCH 30.3 MCHC 32.1 RDW Std Deviation 48.7 H Plt Count 83 L Neut % (Auto) 63 Lymph % (Auto) 26 [place] % (Auto) 8 Eos % (Auto) 3 Baso % (Auto) 0 Neut # (Auto) 5.0 Lymph # (Auto) 2.1 [place] # (Auto) 0.7 Eos # (Auto) 0.2 Baso # (Auto) 0.0 Immature Gran # (Auto) 0.02 H Absolute Nucleated RBC 0.00 Immature Gran % 0 Nucleated RBC % 0 Sodium 141 Potassium 4.0 Chloride 106 Carbon Dioxide 23.6 Anion Gap 11 BUN 41 H Creatinine 3.0 H Estim Creat Clear Calc 18.3 L eGFR 21 L BUN/Creatinine Ratio 14 Glucose 90 Calculated Osmolality 291 Calcium 8.4 Corrected Calcium 8.7 Phosphorus 3.2 Magnesium 2.5 Total Bilirubin 0.5 AST 18 ALT 21 Alkaline Phosphatase 70 Total Protein 5.7 Albumin 3.6 Globulin 2.1 L Albumin/Globulin Ratio 1.7 25-OH Vitamin D Total 25.2 ABG Interpretation ABG results: 01/30/25 10:52 ABG pH 7.37 ABG pCO2 40 ABG pO2 62 L ABG HCO3 23 ABG O2 Saturation 92 ABG Base Excess -2 Quality Measures Quality Measures none Advance care planning discussed with:: patient Assessment & Plan Assessment Current Active Medications: Generic Name Dose Route Start Last Admin Trade Name Ciro PRN Reason Stop Dose Admin Acetaminophen 650 mg 01/30/25 10:06 Acetaminophen 325 Mg Tablet PO 03/01/25 10:05 Q6H PRN Fever >100 or pain 1-3 Hydrocodone Bitart/Acetaminophen 1 tab 01/30/25 10:06 Hydrocodone/Apap 5/325 Tablet PO 02/04/25 10:05 Q4HR PRN PAIN SCALE 4-6 (Moderate Apixaban 2.5 mg 01/30/25 21:00 02/02/25 08:59 Apixaban 2.5 Mg Tablet PO 03/01/25 20:59 2.5 mg BID RACHELLE Administration Aspirin 81 mg 01/31/25 09:00 02/02/25 08:59 Aspirin Ec 81 Mg Tabec PO 03/02/25 08:59 81 mg QDAY RACHELLE Administration Atorvastatin Calcium 80 mg 01/30/25 21:00 02/01/25 20:46 Atorvastatin Calcium 20 Mg Tablet PO 03/01/25 20:59 80 mg HS RACHELLE Administration Bumetanide 1 mg 01/30/25 15:30 02/01/25 08:28 Bumetanide Inj 0.25 Mg/Ml Vial 4 Ml IVP 03/01/25 15:29 1 mg QDAY RACHELLE Administration Azithromycin 500 mg/ Sodium 250 mls @ 250 mls/hr 01/30/25 12:22 02/01/25 08:29 Chloride IV 02/06/25 12:21 250 mls/hr QDAY RACHELLE Administration Ceftriaxone Sodium/Dextrose 2 gm in 50 mls @ 100 mls/hr 02/01/25 09:00 02/02/25 08:59 Rocephin/D5w 2gm IV 02/08/25 08:59 100 mls/hr QDAY RACHELLE Administration Ipratropium [place] 0.5 mg 01/31/25 19:00 02/02/25 06:26 Ipratropium Rt 0.5 Mg/ 2.5 Ml Nebu INH 03/02/25 18:59 0.5 mg BIDRT RACHELLE Administration Levalbuterol HCl 1.25 mg 01/31/25 19:00 02/02/25 06:26 Levalbuterol Rt 1.25 Mg/0.5 Ml Nebu INH 03/02/25 18:59 1.25 mg BIDRT RACHELLE Administration Ondansetron HCl 4 mg 01/30/25 10:06 Ondansetron Inj 2 Mg/Ml Inj 2 Ml IVP 03/01/25 10:05 Q6H PRN NAUSEA OR VOMITING Protocol Sodium Chloride 3 ml 01/31/25 14:34 Sodium Chloride Rt Sasha 0.9% 3 Ml Nebu INH 03/02/25 14:33 PRN PRN SOLN Plan Mr. Lundberg is a 79 y/o male with PMHx of CAD s/p CABG, pacemaker, HTN, HLD, HFrEF (ECHO pending) who comes is currently admitted for acute hypoxic respiratory failure. Nephro consulted for DANNIELLE on CKD. v/q scan negative to r/o PE, and echo pending. pt wishes to leave hospital today given concern for arranging transportation home #DANNIELLE on CKD Stage IV Cr 3.2 from 3.1, BUN 44 from 41, K wnl appears euvolemic, no LE edema, and lungs clear to auscultation Urine protein creatinine ratio<3.5gm Plan -daily CMP -recommend oupatient f/u with [facility] outpatient -rec hold diuretics for #chf exacerbation -avoid nephrotoxic agents -stict ins and outs. #Bilateral renal hypoplasia query intrinsic dz. Dx - renal US with BL small kidneys, Right kidney 6.9 cm renal cortex 1.3 cm Left kidney 8.0 cm renal cortex 1.1 cm - pending NM renal function and flow #Acute hypoxic respiratory failure- resolved #Acute decompensated heart failure- resolved -echo pending #Query Pulmonary embolism - Ruled out - v/q scan negative #Pneumonia, likely gram positive, negative or atypical organism - on azithro and ctx #chronic a fib #History of CAD, status post CABG #Elevated troponins- downtrended #HLD #HTN- well controlled #R shoulder pain #Normocytic Anemia, query 2/2 CKD -Management as per primary team Plan discussed with nephrology attending Dr. Yanet Aguilera MD Internal Medicine PGY-1 Attending Provider Attestation/Addendum Patient seen and examined with resident physician Dr. Aguilera. Note reviewed, agree with findings and recommendations. DANNIELLE most likely related to prerenal azotemia. Suspect underlying CKD although we do not have the old records. Not sure what his baseline creatinine is. Renal ultrasound showed a significantly small right kidney. A renal scan ordered to check for the function and flow of the right kidney. Unfortunately too small to salvage the right kidney. Echocardiogram pending. Diuretic was held. Patient anxious to go home. Recommended to follow-up with me in 1 week and I will order the renal scan as an outpatient.
[2025-02-02] MEDS: AZITHROMYCIN INJ 500 MG in SODIUM CHLORIDE 0.9% 250 ML 250 ML 250 MG IV (09:33)
[2025-02-02 12:00] VITALS: BP 113/65; PULSE 59; PULSE 76; RESP 17; TEMP 36.7; O2SAT 97
[2025-02-02 16:00] VITALS: BP 112/67; PULSE 82; PULSE 86; RESP 18; TEMP 36.2; O2SAT 99
--- NOTE | 2025-02-02 16:50 | PD.RESDS ---
Planned Discharge Date 02/02/25 DS: Providers Provider Date of admission: 01/30/25 07:55 Primary care physician: Physician No Primary/Family Admitting Provider: Lucas Mota DO Attending Provider on Admission: Lucas Mota DO Consults: 01/30/25 10:48 Consult to Nephrology Routine Comment: Consulting Provider: Arlette Horn Attending Provider on DC: Christina Taylor MD Discharging Provider: Christina Taylor MD DS: Diagnosis Problem List Completed Was Problem List Reviewed/Reconciled?: Yes Hospital Course Hospital Course Hospital course: A 64-year-old a 79-year-old male patient with past medical history of coronary artery disease status post CABG, pacemaker, hypertension, hyperlipidemia, HFrEF came to the ED due to shortness of breath that started acutely. He denied any chest pain. Patient was found to have heart rate of 101, respiratory rate of 16, blood pressure was 119/82, he was saturating 95% on room air. D-dimer was done and it was more than 3820, BNP was 892. Patient was admitted for acute hypoxic respiratory failure most likely secondary to acute heart failure decompensation versus pulmonary embolism versus pneumonia. Because the patient found to have elevated serum creatinine and no one evidence of chronic or acute VQ scan was done and that showed low probability of pulmonary embolism. Patient was treated for acute heart failure, patient was started on ceftriaxone and azithromycin will be switched to Augmentin on discharge. During his stay we consulted nephrology due to his elevated serum creatinine, renal ultrasound showed Small kidneys with bilateral renal cortical thinning. Patient was scheduled for nuclear scan for his kidneys however he was requesting to go home and follow-up outpatient. Patient was recommended to follow-up outpatient settings with a pool finisher. At this time patient deemed to be clinically stable for discharge and was given the following instructions: Discharge instructions ? Follow-up with your PCP within 1 week from discharge ? Follow-up with your heart doctor within 1 week from discharge ? Follow-up with a pool finisher(kidney doctor) within 1 week from discharge ? Continue oral antibiotic Augmentin 1 g 2 times a day for 2 days ? In case of worsening of your symptoms please return to the ED as soon as possible Discharge diagnosis #Acute hypoxic respiratory failure secondary to CHF exacerbation #Non-STEMI type II #Community-acquired pneumonia #Pulmonary embolism ruled out #DANNIELLE versus CKD #History of coronary artery disease status post CABG #History of A-fib status post pacemaker #History of hypertension #History of hyperlipidemia #History of normocytic anemia - Patient's plan and care discussed with my attending, Dr. Svetlana Taylor MD Internal Medicine PGY-3 Time Spent with Patient Time attestation: Total time spent providing and/or coordinating discharge services: Time spent: Greater than 30 minutes Exam Vital Signs Temp Pulse Resp BP Pulse Ox O2 Del Method O2 Flow Rate 97.2 F 82 18 112/67 99 Room Air 2 02/02/25 16:00 02/02/25 16:00 02/02/25 16:00 02/02/25 16:02/02/25 16:02/02/25 16:01/31/25 00:00 Narrative Exam General: AAOx3, NAD, pleasant male HEENT: Moist mucous membranes, conjunctiva clear, EOMI, PERRLA, Cardiovascular: S1, S2, possible EJM heard, radial pulses +2 bilat, RRR, no JVD appreciated Pulmonary: CTAB, no wheezing at this time. GI: No tenderness to light or deep palpitation, no guarding, rigidity, rebound tenderness or distension Extremities: trace edema in lower extremities bilaterally, dorsalis pedis pulses +2 bilaterally Neuro: AAOx3, no focal motor or sensory deficits in the UE or LE bilat Psych: Good judgement, thought and behavior Discharge Plan Plan Patient Disposition: HOME (Self Care) Patient condition on transfer: Stable and Benefits outweigh risks Care Plan Goals: Discharge instructions ? Follow-up with your PCP within 1 week from discharge ? Follow-up with your heart doctor within 1 week from discharge ? Follow-up with a pool finisher(kidney doctor) within 1 week from discharge ? Continue oral antibiotic Augmentin 1 g 2 times a day for 2 days ? In case of worsening of your symptoms please return to the ED as soon as possible Prescriptions/Referrals Prescriptions/Med Rec: New aspirin 81 mg Tablet,Delayed Release (Dr/Ec) 81 mg PO QDAY 7 Days Qty: 7 0RF amoxicillin-pot clavulanate 875-125 mg tablet 1 tab PO BID 3 Days Qty: 6 0RF Continued Entresto 24-26 mg tablet 1 tab PO BID montelukast 10 mg tablet 10 mg PO .pm Patient Comments: TAKE 1 TABLET BY MOUTH EVERY EVENING rosuvastatin 40 mg tablet 40 mg PO QDAY isosorbide mononitrate 30 mg tablet extended release 24 hr 30 mg PO QAM bumetanide 1 mg tablet 1 mg PO QDAY Eliquis 2.5 mg tablet 2.5 mg PO BID carvedilol 3.125 mg tablet 3.125 mg feeding tube BID Patient Comments: with food Referrals: No Primary/Family,Physician [Primary Care Provider] - Patient/Caregiver Discharge Instructions Discharge Activity: activity as tolerated Education Materials: Heart Failure Meds, Kidney Failure Tx Options, Kidney Failure Self Care Print Language: [place] Stand Alone Forms: Margaret Award Info., Patient Portal Info Letter Discharge Order Discharge Orders: Discharge (Routine); Ordered 02/02/25 Ordered By: Christina Taylor Quality Discharge Quality Measures VTE prophylaxis MD Attestestation MD Attestation I have discussed and was present for the essential components of the discharge history, physical examination, diagnosis, and discharge treatment plan with the resident. I agree with the patient's discharge care as documented by the resident and amended herein by me. Barrington Mota DO. The patient understood all discharge instructions, all questions were answered satisfactorily. The patient was instructed to return to the Emergency Department is symptoms worsened or persisted. Although this document has been carefully reviewed, there may still be some phonetic and other typographical errors. These errors are purely grammatical due to imperfections in the software program and should not be construed in any way to compromise the substance of the patient's medical care during this visit.
--- NOTE | 2025-02-03 08:40 | CHAP ---
Patient was visited by a Spiritual Care Volunteer on 02/02/2025 between 0904 and 1100 and received comfort, encouragement and/or prayer.
[2025-02-08 06:38] LABS: Vitamin D,1,25 (OH)2,Total 16 pg/mL (18-72); Vitamin D2, 1,25 (OH)2 <8 pg/mL; Vitamin D3, 1,25 (OH)2 16 pg/mL
== END 2025-02-02 18:31 | disposition home or self-care (01) | DRG 280 ==
LOC: SERX 08:00 → SERHOLD 08:03 → S3SX 02-01 06:43
PROVIDERS: Emergency Medicine; Internal Medicine; Student in an Organized Health Care Education/Training Program; Admitting Provider Student in an Organized Health Care Education/Training Program; Emergency Provider Emergency Medicine; Visit Provider Student in an Organized Health Care Education/Training Program
DX: I13.0 Hypertensive heart and chronic kidney disease with heart failure and stage 1 through stage 4 chronic kidney disease, or unspecified chronic kidney disease (principal); I26.99 Other pulmonary embolism without acute cor pulmonale; I21.A1 Myocardial infarction type 2; J18.9 Pneumonia, unspecified organism; J96.01 Acute respiratory failure with hypoxia; J44.0 Chronic obstructive pulmonary disease with (acute) lower respiratory infection; N17.9 Acute kidney failure, unspecified; I48.20 Chronic atrial fibrillation, unspecified; I50.22 Chronic systolic (congestive) heart failure; N18.4 Chronic kidney disease, stage 4 (severe); Z95.1 Presence of aortocoronary bypass graft; R73.03 Prediabetes; D69.6 Thrombocytopenia, unspecified; D63.1 Anemia in chronic kidney disease; N27.1 Small kidney, bilateral; F17.200 Nicotine dependence, unspecified, uncomplicated; I25.10 Atherosclerotic heart disease of native coronary artery without angina pectoris; E78.5 Hyperlipidemia, unspecified; Z79.01 Long term (current) use of anticoagulants; Z79.82 Long term (current) use of aspirin; Z79.899 Other long term (current) drug therapy; Z95.0 Presence of cardiac pacemaker
CPT/HCPCS: 36415; 36600; 71045; 76770; 78582; 80053; 80061; 80307; 81001; 82306; 82570; 82652; 82803; 83036; 83605; 83735; 83880; 83970; 84100; 84145; 84156; 84300; 84443; 84484; 84540; 84550; 85025; 85379; 85610; 85730; 87040; 87077; 87205; 87400; 87811; 89220; 93005; 93225; 93970; 94640; 94664; 94762; 96374; 99285; A9270; A9539; A9540; J0456; J0696; J1644; J1938; J2919; J3475; J3490; J7050